=== PATIENT | female | born 1950 | race Caucasian/White ===

== ENCOUNTER 2021-08-21 07:41 | Emergency (ER) | payer MEDICARE, SELFPAY ==
[2021-08-21 07:49] VITALS: BP 168/60; BP 182/82; PULSE 71; RESP 18; O2SAT 96
[2021-08-21 07:51] VITALS: BMI 28.9
--- NOTE | 2021-08-21 07:58 | ED.HA ---
HPI - Headache General Chief Complaint: Headache Stated Complaint: headache, n/v Time Seen by Provider: 08/21/21 07:43 Source: patient and EMS Mode of arrival: EMS Limitations: no limitations History of Present Illness MD elicited complaint: headache and other (elevated BP ran out of metoprolol yesterday AM on 25 metoprolol BID) Pertinent past history: hypertension Onset (ago): day(s) (last night) Onset description: gradually Location: frontal Severity: moderate Quality & Timing: aching Exacerbating factors: none Relieving factors: nothing Context: occurred at rest Associated symptoms: nausea and vomiting Treatments prior to arrival: none Related Data Previous Rx's Medication Instructions Recorded metoprolol tartrate 25 mg tablet 25 mg PO BID #60 tab 08/21/21 Allergies Allergy/AdvReac Type Severity Reaction Status Date / Time NSAIDS (Non-Steroidal Allergy Intermediate STOMACH Unverified 07/03/20 15:43 Anti-Inflamma UPSET [NSAIDS] NSAIDS Allergy Unknown Uncoded 02/29/12 00:00 Review of Systems Review of Systems: Constitutional : No Fever, No Chills, No Fatigue ENT/Mouth : No sore throat, No Rhinorrhea Eyes: No Eye Pain, No Swelling, No Redness Cardiovascular : No Chest Pain, No SOB, No Dyspnea on Exertion Respiratory : No Cough, No Sputum Gastrointestinal : pos Nausea, pos Vomiting, No Diarrhea, No abdominal Pain Genitourinary : No Dysuria, No Urinary Frequency, No Hematuria, Musculoskeletal : No joint pain, No Myalgias, No Joint Swelling Skin : No Skin Lesions, No rash Neuro : No Weakness, No Numbness, No Dizziness, positive Headache Psych : No Anxiety/Panic, No Depression Heme/Lymph: No Bruising, No Bleeding,No Lymphadenopathy Endocrine : No Polyuria, No Polydipsia All other systems reviewed and are negative [facility] Past Medical History Medical History HTN (hypertension) Social History Social History Patient Tobacco Use Status: Current someday Tobacco user Smoked in Last 30 Days: Yes Use of substances other than those prescribed or required for medical reasons: No Advance Directives: No Advance Directives Information Provided: No Physical Exam Vital Signs: Vital Signs: Last Vital Signs Temp 97.7 F 08/21/21 08:05 Pulse 68 08/21/21 08:34 Resp 16 08/21/21 08:34 BP 161/76 H 08/21/21 08:34 Pulse Ox 97 08/21/21 08:34 Body Mass Index 28.9 Appearance: Alert. Oriented X3. No acute distress. Anxious Eyes: Pupils equal, round and reactive to light. ENT: Pharynx normal. Neck: Normal inspection. Neck supple. no meningeal signs CVS: Normal heart rate and rhythm. Pulses normal. Respiratory: No respiratory distress. Breath sounds normal. Abdomen: Soft and non-tender. Skin: Skin warm and dry. Normal skin color. Normal skin turgor. Extremities: No lower extremity edema. No calf ttp Neuro: Oriented X 3. No motor deficit. No sensory deficit. Course Course Course Narrative: patient now refusing to stay states she has someone at home she has to take care of just care of, just needs metoprolol, alert and oriented x 3 i asked the patient again to stay for imaging and workup but she adamantly refuses due to her not being able to care for himself MDM - Headache MDM Narrative Medical decision making narrative: 71 yo female with hx of HTN off of her metoprolol here with n/v and headaches likely due to lack of her BP medications - at this time she only wants her metoprolol she is neurologically intact. She is refusing any form of pain control and is refusing imaging - PO metoprolol ordered Discharge Plan Discharge Clinical Impression: Tension headache HTN (hypertension) Qualifiers: Hypertension type: unspecified Qualified Code(s): I10 - Essential (primary) hypertension Patient Disposition: Left Against Medical Advice Instructions: Acute Headache (ED), Hypertension (ED), Against Medical Advice (ED) Additional Instructions: return to ED for any worsening symptoms or concerns you refused imaging of your brain and you left prior to your blood work being resulted Prescriptions: New metoprolol tartrate 25 mg tablet 25 mg PO BID Qty: 60 RF: 0 Referrals: Wero Booker MD [Primary Care Provider] - 2 days
[2021-08-21] MEDS: Metoprolol Tartrate 25 MG TABLET PO (07:59)
[2021-08-21] MEDS: Ondansetron ODT 4 MG TAB.RAPDIS TRANSLINGU (07:59)
[2021-08-21 08:05] VITALS: BP 149/78; PULSE 73; RESP 15; TEMP 36.5; O2SAT 96
[2021-08-21 08:34] VITALS: BP 161/76; PULSE 68; RESP 16; O2SAT 97
--- NOTE | 2021-08-21 08:37 | PC.NURSE ---
Per lab blood work was never received. Pt informed repeat bloodwork would need to be done. Pt became agitated and refused repeat bloodwork. Pt requested to leave ED. RN informed.
--- NOTE | 2021-08-21 08:59 | PC.NURSE ---
Attempted to discharge the patient and pt began actively vomiting. Pt advised to stay for a CT and further treatment, but she is adamantly refusing to stay. MD is aware who also spoke to the patient about the risk of leaving. Pt is willing to sign out AMA despite the risk.
== END 2021-08-21 09:10 | disposition left against medical advice (07) ==
PROVIDERS: Emergency Provider Emergency Medicine; PCP Internal Medicine
DX: G44.209 Tension-type headache, unspecified, not intractable (principal); I10 Essential (primary) hypertension; F17.200 Nicotine dependence, unspecified, uncomplicated
CPT/HCPCS: 99283; 99284

== ENCOUNTER 2021-11-03 13:12 | Emergency (ER) | payer MEDICARE, SELFPAY ==
[2021-11-03 14:13] VITALS: BP 170/72; PULSE 75; RESP 18; TEMP 37.1; O2SAT 98; BMI 25.1
== END 2021-11-03 18:11 | disposition left against medical advice (07) ==
PROVIDERS: Emergency Provider Emergency Medicine; PCP Internal Medicine
DX: M79.604 Pain in right leg (principal)
CPT/HCPCS: 99281; 99282

== ENCOUNTER 2022-06-10 19:52 | Inpatient (IN) | payer MEDICARE, SELFPAY ==
[2022-06-10] VITALS (8 sets, daily range): BP systolic 169–183; BP diastolic 70–90; PULSE 95–110; RESP 16–20; TEMP 36.6–36.7; O2SAT 98–99; BMI 23.2
--- NOTE | ~2022-06-10 | CT_ITS ---
EXAMINATION: CT HEAD WITHOUT CONTRAST CLINICAL INFORMATION: Altered mental status. COMPARISON: 04/24/2013 TECHNIQUE: Contiguous axial imaging was performed from the skull base to vertex without intravenous contrast. This CT examination was performed using dose optimization techniques as appropriate, variously including the following: * Automated exposure control * Adjustment of mA and/or kV according to patient size (this includes techniques or standardized protocols for targeted exams where dose is matched to indication/reason for exam; i.e. extremities or head) Use of iterative reconstruction technique DLP: 898 mGy-cm. FINDINGS: There is some motion limitation to the study. There is no evidence of acute intracranial hemorrhage or territorial infarction. No abnormal mass effect or midline shift is seen. Napoles to white matter differentiation is well preserved. No extra-axial fluid collections are identified. No hydrocephalus. Proportional prominence of the ventricles and sulcal spaces is consistent with mild volume loss. Patchy periventricular and deep white matter hypoattenuation is consistent with mild small vessel ischemic changes. The osseous structures and soft tissues are normal. The mastoid air cells and visualized portions of the paranasal sinuses are well aerated. CT/CT head/brain wo con IMPRESSION: No acute intracranial pathology. Mild volume loss with small vessel ischemic change.
--- NOTE | 2022-06-10 20:17 | ECG_ITS ---
Test Reason : MEDICAL CLEARANCE Blood Pressure : / mmHG Vent. Rate : 075 BPM Atrial Rate : 075 BPM P-R Int : 120 ms QRS Dur : 080 ms QT Int : 394 ms P-R-T Axes : 076 068 054 degrees QTc Int : 439 ms Sinus rhythm with marked sinus arrhythmia Possible Left atrial enlargement Borderline ECG When compared with ECG of 24-APR-2013 17:48, No significant change was found Referred By: David Guillen Electronically Signed By:ANTIONE SPRINGER
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
--- NOTE | 2022-06-10 21:20 | PHA.MEDREC ---
Pharmacy Consult ? Medication Reconciliation Pharmacy has completed the medication reconciliation. Patient states she is on no medication at home. Because of patients altered mental status I also checked her claim history. Patient has not picked up any medications since december.
--- NOTE | 2022-06-10 21:46 | PC.NURSE ---
Addendum entered by Jaquelin Chase RN 06/10/22 22:21: Provider ordered benadryl and zyprexa PO but pt would not cooperate to take the pills. Pt got up and tried to run out of the emergency room. Situation was deescalated and pt was brought into the BH Pod. Report was given to Zhang DAVILA, who will resume care. Original Note: Pt came in via [place] [facility]EMS. Fire expressed concerns of confusion, delusions, forgetfulness. Her arrived to the hospital and reported pt has been having random screaming fits, racing thoughts, erratic behavior including driving, increased anxiety and paranoia. Jemima WEINSTEIN filed a section 12 for the pt based on the concerns and reports of erratic behavior, dangerous actions, and presenting a harm to herself. When provider went to inform the pt that she will be held here until she can meet with behavioral health, pt stood up, swung at PA and sitter, and started yelling. Situation was deescalated and pt calmed down. Care team is currently speaking with the pt and individually. She will be changed over into hospital attire and brought to the behavioral pod, report has been given to Zhang DAVILA.
[2022-06-10] MEDS: diphenhydrAMINE HCL 50 MG/ML VIAL IM (22:25)
[2022-06-10] MEDS: OLANZapine 10 MG VIAL IM (22:25)
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
[2022-06-10 23:28] LABS: COVID-19 Test Negative (Negative)
[2022-06-11 00:51] LABS: Appearance Urine Clear; Color Urine Yellow; Glucose Urine UA Negative (Negative); Leukocyte Esterase Urine Negative (Negative); Nitrite Urine Negative (Negative); Specific Gravity - Urine <= 1.005 (1.005-1.025); Urine Blood Negative (Negative); Urine Ketones Negative (Negative); Urine Protein Negative (Neg-Trace)
[2022-06-11 01:09] LABS: Amphetamine Screen Urine Not Detected (Not Detect); Barbiturates, Urine Not Detected (Not Detect); Benzodiazepines Screen Urine Not Detected (Not Detect); Cannabinoid Screen Urine Not Detected (Not Detect); Cocaine Screen Urine Not Detected (Not Detect); Fentanyl, urine Not Detected (Not Detect); Opiate Screen Urine Not Detected (Not Detect); Phencyclidine Screen Urine Not Detected (Not Detect)
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
[2022-06-11 07:11] VITALS: BP 151/93; PULSE 87; RESP 18; TEMP 36.6; O2SAT 97
--- NOTE | 2022-06-11 07:22 | PC.NURSE ---
patient appears to remain at rest at present patient approached for CT scan and patient seems to have skewed concept regarding her arrival at hospital. patient states shes here for high blood pressure , i felt dizzy and went for a long drive .
[2022-06-11] MEDS: Midazolam HCl/PF 2 MG/2 ML VIAL IM (07:45)
[2022-06-11 08:00] VITALS: BP 161/80; PULSE 91; RESP 16; O2SAT 98
[2022-06-11 08:15] VITALS: BP 151/93; PULSE 87; RESP 16; O2SAT 97
[2022-06-11 08:30] VITALS: RESP 16
[2022-06-11 08:45] VITALS: BP 169/78; PULSE 82; RESP 16; TEMP 36.6; O2SAT 97
[2022-06-11 10:09] LABS: MANUAL DIFF FLAG NO
[2022-06-11 10:10] LABS: Basophils Percent Auto 0.6 % (0-2); Eosinophils Absolute Auto 0.1 X10*3/uL (0.0-0.4); Eosinophils Percent Auto 1.3 % (0-4); Hematocrit 46.4 % (37.0-47.0); Hemoglobin 15.7 g/dl (12.0-16.0); Imm Gran Abs Auto 0.01 X10*3/uL (0.00-0.03); Imm Gran Pct Auto 0.1 % (0.0-0.4); Lymphocytes Absolute Auto 1.3 X10*3/uL (1.2-4.9); Lymphocytes Percent Auto 18.6 % (20-40); Mean Corpuscular HGB Conc 33.8 g/dl (31.0-35.0); Mean Corpuscular Volume 88.5 fL (80.0-98.0); Mean Platelet Volume 10.1 fL (9.4-12.3); Monocytes Absolute Auto 0.7 X10*3/uL (0.1-1.2); Monocytes Percent Auto 10.3 % (2-11); Neutrophils Absolute Auto 4.9 x10*3/uL (2.0-8.3); Neutrophils Percent Auto 69.1 % (45-73); Platelet Count 188 X10*3/uL (160-400); Red Blood Count 5.24 X10*6/uL (4.20-5.50); White Blood Count 7.1 X10*3/uL (4.8-10.8)
[2022-06-11 10:26] LABS: Alanine Aminotransferase 11 U/L (0-31); Albumin Level 4.2 g/dL (3.5-5.0); Alkaline Phosphatase 93 U/L (39-117); Anion Gap 13 (12-20); Aspartate Amino Transferase 22 U/L (5-31); Blood Urea Nitrogen 11 mg/dL (9-16); Calcium 9.3 mg/dL (8.4-10.2); Carbon Dioxide 28 mmol/L (22-29); Chloride 105 mmol/L (96-108); Creatinine Clr Calc Pharmacy 60.9; Estimated Glomerular Filt Rate > 60; Ethanol < 10 mg/dL; Glucose Random 124 mg/dL (60-115); Magnesium 1.9 mg/dL (1.6-2.6); Potassium 4.1 mmol/L (3.3-5.1); Sodium 142 mmol/L (135-145); Total Protein 6.9 g/dL (6.5-8.0)
[2022-06-11 10:32] LABS: Troponin-I High Sensitivity 9.5 ng/L (<3.5-17.0)
--- NOTE | 2022-06-11 13:25 | PC.NURSE ---
attempted to assist cleint and call left message
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
[2022-06-11 18:00] VITALS: BP 161/83; PULSE 83; RESP 20; TEMP 36.4; O2SAT 97
[2022-06-12 06:00] VITALS: BP 142/77; PULSE 96; RESP 14; TEMP 36.4; O2SAT 97
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
[2022-06-12 18:00] VITALS: BP 165/89; PULSE 98; RESP 20; TEMP 36.6; O2SAT 99
[2022-06-12] MEDS: risperiDONE 0.5 MG TABLET PO (20:32)
[2022-06-13 07:00] VITALS: BP 130/64; PULSE 87; RESP 16; TEMP 36.5; O2SAT 96
--- NOTE | 2022-06-13 10:36 | HO.PSYCHPN ---
Subjective Subjective Date of Service: 06/13/22 Reason For Visit: psychosis / agitation/confusion Subjective Notes: Section 12B Healthcare Proxy: No Guardianship: No Medical Problems Affecting Mental Status: No Interim History: Patient was seen and discussed in rounds today. Records and plans were reviewed. She states that she took the low-dose Risperdal that I started for her yesterday but the nurses think it may be questionable. She states that she did sleep better last night. She is not complaining too much about being here but still is confused about why she is here. No side effects reported. There is behaviors. No changes were made today Medication Compliance: No Review of Systems Review of Systems Yes all other systems are reviewed and are negative Mental Status Exam Mental Status Exam Narrative: In today's visit she is alert, oriented to self, place and the year. Speech is normal. Good eye contact. Affect is appropriate and slightly irritable. Some paranoid ideations and delusions present. Denies any auditory or visual hallucinations. Cognitively he is impaired. Judgment is impaired she denies any SI. Diagnostics Vital Signs (24Hr): Vital Signs - 24 hr 06/12/22 18:00 06/13/22 07:00 Temperature 97.8 F 97.7 F Pulse Rate 98 87 Respiratory Rate 20 16 Blood Pressure 165/89 H 130/64 Pulse Oximetry 99 96 Oxygen Delivery Method Room Air Room Air BMI result Body Mass Index 23.2 Labs Results: 06/11/22 10:03 06/11/22 10:03 Imaging Radiology Impressions: ITS Impressions Head CT 06/11/22 09:01 IMPRESSION: No acute intracranial pathology. Mild volume loss with small vessel ischemic change. Medications Medications Current Medications Acetaminophen (Acetaminophen 325 Mg Tablet) 650 mg PO Q6H PRN PRN Reason: Headache/Pain Mild Scale (1-3) Al Hydroxide/Mg Hydroxide (Magnesium Hydrox/Alum Hydrox 30 Ml Oral.Susp) 30 ml PO Q6H PRN PRN Reason: Heartburn/Nausea Hydroxyzine HCl (Hydroxyzine Hcl 25 Mg Tablet) 25 mg PO Q6H PRN PRN Reason: Anxiety Magnesium Hydroxide (Milk Of Magnesia 30 Ml Oral.Susp) 30 ml PO DAILY PRN PRN Reason: Constipation Pharmacy Consult (Consult Rx Perform Med Rec) 1 each MISCELLANE ONCE PRN PRN Reason: Consult order Risperidone (Risperidone 0.5 Mg Tablet) 0.5 mg PO BEDTIME CLEMENTINA Last Admin: 06/12/22 20:32 Dose: 0.5 mg Trazodone HCl (Trazodone Hcl 50 Mg Tablet) 50 mg PO BEDTIME PRN PRN Reason: Insomnia Allergies Allergies Allergy/AdvReac Type Severity Reaction Status Date / Time NSAIDS (Non-Steroidal Allergy Intermediate STOMACH Unverified 07/03/20 15:43 Anti-Inflamma UPSET [NSAIDS] NSAIDS Allergy Unknown Uncoded 02/29/12 00:00 Assessment & Plan Assessment & Plan (1) Paranoid delusion: Status: Acute Code(s): F22 - Delusional disorders (2) Dementia: Status: Acute Code(s): F03.90 - Unspecified dementia without behavioral disturbance Plan 06/12/2022: Riddhi is admitted for safety and treatment and stabilization. I suggested starting her on a low-dose Risperdal. Side effects reviewed. Her level of comprehension is questionable. Her compliance is questionable also. She will meet with her treatment team on 06/14/22. 06/13: Continue current regimen and plans I spent minutes with the patient and/or on the patient floor today, greater than?50% of which was spent counseling/coordinating care. Reason for contiued inpatient stay Substantial Risk for: harm to self and med/psych decompensation
[2022-06-13 18:00] VITALS: BP 141/85; PULSE 86; RESP 16; TEMP 36.5; O2SAT 98
[2022-06-13] MEDS: risperiDONE 0.5 MG TABLET PO (20:39)
[2022-06-14 06:00] VITALS: BP 142/80; PULSE 88; RESP 16; TEMP 36.7; O2SAT 98
--- NOTE | 2022-06-14 16:50 | HO.PSYCHPN ---
Subjective Subjective Date of Service: 06/14/22 Reason For Visit: psychosis / agitation/confusion Subjective Notes: Hay Warning and Section 12B Healthcare Proxy: No Guardianship: No Medical Problems Affecting Mental Status: No Interim History: I spoke with pt's team, she has been confused, refuses to sign in. Has not yet signed any releases. Unclear benefit on risperdal 0.5 mg, pt has not been formerly diagnosed with dementia, although appears to have cognitive impairment due to memory loss. Also appears paranoid, suspicious. Will need to obtain collateral info from . I evaluated pt, she talks about various losses in her life, although unable to tell me who as she loses track of conversation, becomes derailed. She says prior to hospitalization she has not been sleeping, has lost weight, and attributes this to being too busy in activity/ chores i.e. laundry. Pt is untrusting that T/W is who I say I am, asks to check my badge. Pt is verbalizing negative self thoughts, tells me she looks terrible, unclear sx of depression. When asked if she would be willing to sign a CV, she says she wants to sleep on it. Medication Compliance: Yes Side effects from medications: No Attending Groups: Intermittent Review of Systems Acute medical concerns: No Medical Review of Systems: unchanged Mental Status Exam Mental Status Exam Narrative: Alert but not oriented. Well groomed, good hygiene, petite/ thin body habitus. Intermittent eye contact, inattentive. No Tics or Tremors. No abnormal involuntary movements. Calm, but suspicious, not able to meaningfully engage in conversation. Non-pressured speech, spontaneous with regular rate and rhythm, normal volume and prosody. No prolonged speech latency or dysarthria. Mood is [did not state], affect is constricted. Denies SI/SIB/HI upon inquiry. Denies A/VH. Appears to have paranoid delusional thought content. Thoughts are disorganized, tangential, derailed at times. Appears to have cognitive/ memory impairment. Insight/ Judgment poor. Diagnostics Vital Signs (24Hr): Vital Signs - 24 hr 06/13/22 18:00 Temperature 97.7 F Pulse Rate 86 Respiratory Rate 16 Blood Pressure 141/85 H Pulse Oximetry 98 Oxygen Delivery Method Room Air BMI result Body Mass Index 23.2 Labs Results: 06/11/22 10:03 06/11/22 10:03 Imaging Radiology Impressions: ITS Impressions Head CT 06/11/22 09:01 IMPRESSION: No acute intracranial pathology. Mild volume loss with small vessel ischemic change. Medications Medications Current Medications Acetaminophen (Acetaminophen 325 Mg Tablet) 650 mg PO Q6H PRN PRN Reason: Headache/Pain Mild Scale (1-3) Al Hydroxide/Mg Hydroxide (Magnesium Hydrox/Alum Hydrox 30 Ml Oral.Susp) 30 ml PO Q6H PRN PRN Reason: Heartburn/Nausea Hydroxyzine HCl (Hydroxyzine Hcl 25 Mg Tablet) 25 mg PO Q6H PRN PRN Reason: Anxiety Magnesium Hydroxide (Milk Of Magnesia 30 Ml Oral.Susp) 30 ml PO DAILY PRN PRN Reason: Constipation Pharmacy Consult (Consult Rx Perform Med Rec) 1 each MISCELLANE ONCE PRN PRN Reason: Consult order Risperidone (Risperidone 0.5 Mg Tablet) 0.5 mg PO BEDTIME CLEMENTINA Last Admin: 06/13/22 20:39 Dose: 0.5 mg Trazodone HCl (Trazodone Hcl 50 Mg Tablet) 50 mg PO BEDTIME PRN PRN Reason: Insomnia Allergies Allergies Allergy/AdvReac Type Severity Reaction Status Date / Time NSAIDS (Non-Steroidal Allergy Intermediate STOMACH Unverified 07/03/20 15:43 Anti-Inflamma UPSET [NSAIDS] NSAIDS Allergy Unknown Uncoded 02/29/12 00:00 Assessment & Plan Assessment & Plan (1) Paranoid delusion: Status: Acute Code(s): F22 - Delusional disorders (2) Dementia: Status: Acute Code(s): F03.90 - Unspecified dementia without behavioral disturbance Plan 06/12/2022: Riddhi is admitted for safety and treatment and stabilization. I suggested starting her on a low-dose Risperdal. Side effects reviewed. Her level of comprehension is questionable. Her compliance is questionable also. She will meet with her treatment team on 06/14/22. 06/13: Continue current regimen and plans 06/14: Continue current treatment, pt remains confused, demented, 06/[address] showed Mild volume loss with small vessel ischemic change. OT will follow up with MOCA, ACLS. She remains on section 12b. She does not appear capable of caring for herself independently. Will obtain collateral info from . I spent minutes with the patient and/or on the patient floor today, greater than?50% of which was spent counseling/coordinating care. Patient educated on: diagnosis, medication risk/benefits and therapeutic strategies Reason for contiued inpatient stay Substantial Risk for: inability to function, rapid decompensation and med/psych decompensation
[2022-06-14] MEDS: risperiDONE 0.5 MG TABLET PO (21:18)
[2022-06-14 23:11] VITALS: BP 150/78; PULSE 108; RESP 16; TEMP 36.6; O2SAT 96
[2022-06-15 18:00] VITALS: BP 149/65; PULSE 70; RESP 20; TEMP 36.6; O2SAT 97
[2022-06-15] MEDS: risperiDONE 0.5 MG TABLET PO (20:14)
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
[2022-06-16 07:45] VITALS: BP 145/70; PULSE 75; RESP 16; TEMP 36.6; O2SAT 97
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
[2022-06-16] MEDS: risperiDONE 0.5 MG TABLET PO (21:14)
[2022-06-16 21:50] VITALS: BP 140/80; PULSE 68
[2022-06-17 07:45] VITALS: BP 161/82; PULSE 85; RESP 14; TEMP 36.2; O2SAT 100
[2022-06-17 16:39] VITALS: BMI 23.6
--- NOTE | 2022-06-17 16:49 | HO.PSYCHPN ---
Subjective Subjective Date of Service: 06/17/22 Reason For Visit: psychosis / agitation/confusion Subjective Notes: Hay Warning and Section 7 Healthcare Proxy: No Guardianship: No Medical Problems Affecting Mental Status: No Interim History: I spoke with pt's team. Her declined a family meeting but wants to be kept up to date, unknown court date.?Pt refuses ACL and MOCA. SW is looking into the [facility] program. Per RN, pt still gets very mad, very quick, but she didnt seem paranoid too much today at all. ?She refuses liquid risperdal, insists on only taking 0.5 mg at bedtime. I spoke with pt this evening, she reports she feels exhausted and that I blew my top off today because there are too many people grabbing at me. Complains of feeling cold and says her sleep is poor, feels tired. Feels a little bit fed up. Denies SI/SIB, says she feels safe. Medication Compliance: Intermittent Side effects from medications: No Attending Groups: Intermittent Review of Systems Acute medical concerns: No Medical Review of Systems: unchanged Mental Status Exam Mental Status Exam Narrative: Alert but not oriented. Well groomed, good hygiene, petite/ thin body habitus. Intermittent eye contact, inattentive. No Tics or Tremors. No abnormal involuntary movements. Calm, but suspicious, conversation is difficult, not linear. Non-pressured speech, spontaneous with regular rate and rhythm, normal volume and prosody. No prolonged speech latency or dysarthria. Mood is [refused to state], affect is constricted. Denies SI/SIB/HI upon inquiry. Denies A/VH. Appears to have paranoid delusional thought content. Thoughts are derailed at times. Appears to have cognitive/ memory impairment. Insight/ Judgment poor. Diagnostics Vital Signs (24Hr): Vital Signs - 24 hr 06/16/22 21:50 06/17/22 07:45 Temperature 97.1 F Pulse Rate 68 85 Respiratory Rate 14 Blood Pressure 140/80 H 161/82 H Pulse Oximetry 100 Oxygen Delivery Method Room Air BMI result Body Mass Index 23.6 Labs Results: 06/11/22 10:03 06/11/22 10:03 Imaging Radiology Impressions: ITS Impressions Head CT 06/11/22 09:01 IMPRESSION: No acute intracranial pathology. Mild volume loss with small vessel ischemic change. Medications Medications Current Medications Acetaminophen (Acetaminophen 325 Mg Tablet) 650 mg PO Q6H PRN PRN Reason: Headache/Pain Mild Scale (1-3) Al Hydroxide/Mg Hydroxide (Magnesium Hydrox/Alum Hydrox 30 Ml Oral.Susp) 30 ml PO Q6H PRN PRN Reason: Heartburn/Nausea Hydroxyzine HCl (Hydroxyzine Hcl 25 Mg Tablet) 25 mg PO Q6H PRN PRN Reason: Anxiety Magnesium Hydroxide (Milk Of Magnesia 30 Ml Oral.Susp) 30 ml PO DAILY PRN PRN Reason: Constipation Melatonin (Melatonin 3 Mg Tablet) 3 mg PO BEDTIME PRN PRN Reason: insomnia Pharmacy Consult (Consult Rx Perform Med Rec) 1 each MISCELLANE ONCE PRN PRN Reason: Consult order Risperidone (Risperidone Oral Heidi 1 Mg/Ml Solution) 1 mg PO BEDTIME CLEMENTINA Last Admin: 06/16/22 20:47 Dose: Not Given Risperidone (Risperidone 1 Mg Tablet) 1 mg PO BEDTIME PRN PRN Reason: if refuses liquid Trazodone HCl (Trazodone Hcl 50 Mg Tablet) 50 mg PO BEDTIME PRN PRN Reason: Insomnia Allergies Allergies Allergy/AdvReac Type Severity Reaction Status Date / Time NSAIDS (Non-Steroidal Allergy Intermediate STOMACH Unverified 07/03/20 15:43 Anti-Inflamma UPSET [NSAIDS] NSAIDS Allergy Unknown Uncoded 02/29/12 00:00 Assessment & Plan Assessment & Plan (1) Paranoid delusion: Status: Acute Code(s): F22 - Delusional disorders (2) Dementia: Status: Acute Code(s): F03.90 - Unspecified dementia without behavioral disturbance Plan 06/12/2022: Riddhi is admitted for safety and treatment and stabilization. I suggested starting her on a low-dose Risperdal. Side effects reviewed. Her level of comprehension is questionable. Her compliance is questionable also. She will meet with her treatment team on 06/14/22. 06/13: Continue current regimen and plans 06/14: Continue current treatment, pt remains confused, demented, 06/[address] showed Mild volume loss with small vessel ischemic change. OT will follow up with MOCA, ACLS. She remains on section 12b. She does not appear capable of caring for herself independently. Will obtain collateral info from . 06/15: Pt signed TDN on 06/12/22, expires on 06/16/22, obtained collateral info from , pt is presenting with worsening paranoia, unsafe behaviors, and poor judgment. Will continue work up for dementia. Increase risperdal to 0.5 mg BID for paranoia. 06/16: Pt section VII, refused AM risperdal, will trial 1 mg HS for paranoia, agitation 06/17: Pt declined 1 mg, asked for 0.5 mg which was accommodated, has been med adherent with 0.5 mg. Not much improvement, continues to be agitated and suspicious, non-linear thoughts. I spent minutes with the patient and/or on the patient floor today, greater than?50% of which was spent counseling/coordinating care. Patient educated on: diagnosis, medication risk/benefits and therapeutic strategies Reason for contiued inpatient stay Substantial Risk for: inability to function, rapid decompensation and med/psych decompensation
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
[2022-06-17 18:00] VITALS: BP 167/77; PULSE 73; RESP 18; TEMP 36.8; O2SAT 98
[2022-06-17] MEDS: risperiDONE 1 MG TABLET PO (19:48)
[2022-06-18 08:00] VITALS: BP 145/71; PULSE 100; RESP 14; TEMP 36.3; O2SAT 98
--- NOTE | 2022-06-18 18:16 | P.PNPSI_ITS ---
Subjective Subjective Date of Service: 06/18/22 Reason For Visit: psychosis / agitation/confusion Subjective Notes: Hay Warning Interim History: I spoke with pt this evening and she says she is very tired. She continues to report reluctance to take medication, as she prefers to be unmedicated, I dont want it anytime. However, she says she is willing to take 0.5 mg and prefers to take it in the morning. Sleep has been poor, pt is unable to fall asleep so she decided to dry her clothes. Says she did not like staff knocking on her door, told them to leave me alone. Has anxiety over so many things happening. Acknowledges she needs to rest. Medication Compliance: Yes Side effects from medications: No Attending Groups: Intermittent Review of Systems Acute medical concerns: No Medical Review of Systems: unchanged Mental Status Exam Mental Status Exam Narrative: Alert but not oriented. Well groomed, good hygiene, petite/ thin body habitus. Intermittent eye contact, inattentive. No Tics or Tremors. No abnormal involuntary movements. Calm, but suspicious, conversation is difficult, not linear. Non-pressured speech, spontaneous with regular rate and rhythm, normal volume and prosody. No prolonged speech latency or dysarthria. Mood is tired, affect is constricted. Denies SI/SIB/HI upon inquiry. Denies A/VH. Appears to have paranoid delusional thought content. Thoughts are derailed at times. Appear s to have cognitive/ memory impairment. Insight/ Judgment poor. Diagnostics Vital Signs (24Hr): Vital Signs - 24 hr 06/18/22 08:00 Temperature 97.3 F Pulse Rate 100 Respiratory Rate 14 Blood Pressure 145/71 H Pulse Oximetry 98 Oxygen Delivery Method Room Air BMI result Body Mass Index 23.6 Labs Results: 06/11/22 10:03 06/11/22 10:03 Imaging Radiology Impressions: ITS Impressions Head CT 06/11/22 09:01 IMPRESSION: No acute intracranial pathology. Mild volume loss with small vessel ischemic change. Medications Medications Current Medications Acetaminophen (Acetaminophen 325 Mg Tablet) 650 mg PO Q6H PRN PRN Reason: Headache/Pain Mild Scale (1-3) Al Hydroxide/Mg Hydroxide (Magnesium Hydrox/Alum Hydrox 30 Ml Oral.Susp) 30 ml PO Q6H PRN PRN Reason: Heartburn/Nausea Hydroxyzine HCl (Hydroxyzine Hcl 25 Mg Tablet) 25 mg PO Q6H PRN PRN Reason: Anxiety Magnesium Hydroxide (Milk Of Magnesia 30 Ml Oral.Susp) 30 ml PO DAILY PRN PRN Reason: Constipation Melatonin (Melatonin 3 Mg Tablet) 3 mg PO BEDTIME PRN PRN Reason: insomnia Pharmacy Consult (Consult Rx Perform Med Rec) 1 each MISCELLANE ONCE PRN PRN Reason: Consult order Risperidone (Risperidone 1 Mg Tablet) 1 mg PO BEDTIME CLEMENTINA Last Admin: 06/17/22 19:48 Dose: 0.5 mg Trazodone HCl (Trazodone Hcl 50 Mg Tablet) 50 mg PO BEDTIME PRN PRN Reason: Insomnia Allergies Allergies Allergy/AdvReac Type Severity Reaction Status Date / Time NSAIDS (Non-Steroidal Allergy Intermediate STOMACH Unverified 07/03/20 15:43 Anti-Inflamma UPSET [NSAIDS] NSAIDS Allergy Unknown Uncoded 02/29/12 00:00 Assessment & Plan Assessment & Plan (1) Paranoid delusion: Status: Acute Code(s): F22 - Delusional disorders (2) Dementia: Status: Acute Code(s): F03.90 - Unspecified dementia without behavioral disturbance Plan 06/12/2022: Riddhi is admitted for safety and treatment and stabilization. I suggested starting her on a low-dose Risperdal. Side effects reviewed. Her level of comprehension is questionable. Her compliance is questionable also. She will meet with her treatment team on 06/14/22. 06/13: Continue current regimen and plans 06/14: Continue current treatment, pt remains confused, demented, 06/[address] showed Mild volume loss with small vessel ischemic change. OT will follow up with MOCA, ACLS. She remains on section 12b. She does not appear capable of caring for herself independently. Will obtain collateral info from . 06/15: Pt signed TDN on 06/12/22, expires on 06/16/22, obtained collateral info from , pt is presenting with worsening paranoia, unsafe behaviors, and poor judgment. Will continue work up for dementia. Increase risperdal to 0.5 mg BID for paranoia. 06/16: Pt section VII, refused AM risperdal, will trial 1 mg HS for paranoia, agitation 06/17: Pt declined 1 mg, asked for 0.5 mg which was accommodated, has been med adherent with 0.5 mg. Not much improvement, continues to be agitated and suspicious, non-linear thoughts. 06/18: Continue risperdal at 0.5 mg daily, monitor for benefit I spent minutes with the patient and/or on the patient floor today, greater than?50% of which was spent counseling/coordinating care. Patient educated on: medication risk/benefits and therapeutic strategies Reason for contiued inpatient stay Substantial Risk for: inability to function, rapid decompensation and med/psych decompensation
[2022-06-19 06:00] VITALS: BP 143/72; PULSE 95; RESP 17; TEMP 36.8; O2SAT 97
[2022-06-19] MEDS: risperiDONE 0.5 MG TABLET PO (09:12)
--- NOTE | 2022-06-19 09:16 | P.PNPSI_ITS ---
Subjective Subjective Date of Service: 06/19/22 Reason For Visit: psychosis / agitation/confusion Interim History: I spoke with pt's team, pt has been med adherent but remains suspicious, i rritable. Slept through the night. Pt says she is good but she would be a lot better if never saw this place again. Wants to go home. No noticeable changes on risperdal. Medication Compliance: Yes Side effects from medications: No Attending Groups: No Review of Systems Acute medical concerns: No Medical Review of Systems: unchanged Mental Status Exam Mental Status Exam Narrative: Alert but not oriented. Well groomed, good hygiene, petite/ thin body habitus. Intermittent eye contact, inattentive. No Tics or Tremors. No abnormal involuntary movements. Calm, but suspicious, conversation is difficult, not linear. Non-pressured speech, spontaneous with regular rate and rhythm, normal volume and prosody. No prolonged speech latency or dysarthria. Mood is good, affect is constricted. Denies SI/SIB/HI upon inquiry. Denies A/VH. Appears to have paranoid delusional thought content. Thoughts are derailed. Appears to have cognitive/ memory impairment. Insight/ Judgment poor. Diagnostics Vital Signs (24Hr): BMI result Body Mass Index 23.6 Labs Results: 06/11/22 10:03 06/11/22 10:03 Imaging Radiology Impressions: ITS Impressions Head CT 06/11/22 09:01 IMPRESSION: No acute intracranial pathology. Mild volume loss with small vessel ischemic change. Medications Medications Current Medications Acetaminophen (Acetaminophen 325 Mg Tablet) 650 mg PO Q6H PRN PRN Reason: Headache/Pain Mild Scale (1-3) Al Hydroxide/Mg Hydroxide (Magnesium Hydrox/Alum Hydrox 30 Ml Oral.Susp) 30 ml PO Q6H PRN PRN Reason: Heartburn/Nausea Hydroxyzine HCl (Hydroxyzine Hcl 25 Mg Tablet) 25 mg PO Q6H PRN PRN Reason: Anxiety Magnesium Hydroxide (Milk Of Magnesia 30 Ml Oral.Susp) 30 ml PO DAILY PRN PRN Reason: Constipation Melatonin (Melatonin 3 Mg Tablet) 3 mg PO BEDTIME PRN PRN Reason: insomnia Pharmacy Consult (Consult Rx Perform Med Rec) 1 each MISCELLANE ONCE PRN PRN Reason: Consult order Risperidone (Risperidone 0.5 Mg Tablet) 0.5 mg PO DAILY CLEMENTINA Last Admin: 06/19/22 09:12 Dose: 0.5 mg Trazodone HCl (Trazodone Hcl 50 Mg Tablet) 50 mg PO BEDTIME PRN PRN Reason: Insomnia Allergies Allergies Allergy/AdvReac Type Severity Reaction Status Date / Time NSAIDS (Non-Steroidal Allergy Intermediate STOMACH Unverified 07/03/20 15:43 Anti-Inflamma UPSET [NSAIDS] NSAIDS Allergy Unknown Uncoded 02/29/12 00:00 Assessment & Plan Assessment & Plan (1) Paranoid delusion: Status: Acute Code(s): F22 - Delusional disorders (2) Dementia: Status: Acute Code(s): F03.90 - Unspecified dementia without behavioral disturbance Plan 06/12/2022: Riddhi is admitted for safety and treatment and stabilization. I suggested starting her on a low-dose Risperdal. Side effects reviewed. Her level of comprehension is questionable. Her compliance is questionable also. She will meet with her treatment team on 06/14/22. 06/13: Continue current regimen and plans 06/14: Continue current treatment, pt remains confused, demented, 06/[address] showed Mild volume loss with small vessel ischemic change. OT will follow up with MOCA, ACLS. She remains on section 12b. She does not appear capable of caring for herself independently. Will obtain collateral info from . 06/15: Pt signed TDN on 06/12/22, expires on 06/16/22, obtained collateral info from , pt is presenting with worsening paranoia, unsafe behaviors, and poor judgment. Will continue work up for dementia. Increase risperdal to 0.5 mg BID for paranoia. 06/16: Pt section VII, refused AM risperdal, will trial 1 mg HS for paranoia, agitation 06/17: Pt declined 1 mg, asked for 0.5 mg which was accommodated, has been med adherent with 0.5 mg. Not much improvement, continues to be agitated and alexander spicious, non-linear thoughts. 06/18: Continue risperdal at 0.5 mg daily, monitor for benefit 06/19: Pt is adherent with risperdal and refuses to take more than 0.5 mg I spent minutes with the patient and/or on the patient floor today, greater than?50% of which was spent counseling/coordinating care. Patient educated on: diagnosis, medication risk/benefits and therapeutic strategies Reason for contiued inpatient stay Substantial Risk for: inability to function, rapid decompensation and med/psych decompensation
[2022-06-19 18:00] VITALS: BP 137/64; PULSE 78; RESP 16; TEMP 36.3; O2SAT 98
[2022-06-19] MEDS: Acetaminophen 325 MG TABLET 650 MG PO (22:27)
[2022-06-20 06:00] VITALS: BP 115/55; PULSE 89; RESP 17; TEMP 36.4; O2SAT 97
[2022-06-20] MEDS: risperiDONE 0.5 MG TABLET PO (09:54)
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
[2022-06-20 18:00] VITALS: BP 152/70; PULSE 68; RESP 18; TEMP 36.2; O2SAT 100
[2022-06-21 06:00] VITALS: BP 136/68; PULSE 89; RESP 17; TEMP 36.1; O2SAT 98
[2022-06-21] MEDS: risperiDONE 0.5 MG TABLET PO (08:23)
--- NOTE | 2022-06-21 14:39 | P.PNPSI_ITS ---
Subjective Subjective Date of Service: 06/21/22 Reason For Visit: psychosis / agitation/confusion Subjective Notes: Hay Warning and Section 7 Healthcare Proxy: No Guardianship: No Medical Problems Affecting Mental Status: No Interim History: I spoke with pt's team, she slept well, has been difficult to engage in activity but she is visible in the milieu. Attempted to split her risperdal in half in front of RN but ultimately took it. I spoke with pt, says she feels fine, I do. She is tired. Says she does not want to take more than risperdal 0.5 mg daily because she had a friend who was overweight, she took a lot of pills to try to lose wt and had adverse effects, I don't not like taking too many pills. Appetite is increased, attributes to not smoking rather than med SE. She is calmer, more focused during interview. She is open for referrals for in home services and says she thinks social work job titles may be able to help her , demonstrates good judgment there. Medication Compliance: Yes Side effects from medications: No Attending Groups: No Review of Systems Acute medical concerns: No Medical Review of Systems: unchanged Mental Status Exam Mental Status Exam Narrative: Alert but not oriented. Well groomed, good hygiene, petite/ thin body habitus. Intermittent eye contact, inattentive. No Tics or Tremors. No abnormal in voluntary movements. Calm, but suspicious, conversation is difficult, not linear. Non-pressured speech, spontaneous with regular rate and rhythm, normal volume and prosody. No prolonged speech latency or dysarthria. Mood is fine, affect is constricted. Denies SI/SIB/HI upon inquiry. Denies A/VH. Appears to have paranoid delusional thought content. Thoughts are derailed at times. Appears to have cognitive/ memory impairment. Insight/ Judgment poor. Diagnostics Vital Signs (24Hr): Vital Signs - 24 hr 06/20/22 18:00 06/21/22 06:00 Temperature 97.2 F 97 F Pulse Rate 68 89 Respiratory Rate 18 17 Blood Pressure 152/70 H 136/68 Pulse Oximetry 100 98 Oxygen Delivery Method Room Air Room Air BMI result Body Mass Index 23.6 Labs Results: 06/11/22 10:03 06/11/22 10:03 Imaging Radiology Impressions: ITS Impressions Head CT 06/11/22 09:01 IMPRESSION: No acute intracranial pathology. Mild volume loss with small vessel ischemic change. Medications Medications Current Medications Acetaminophen (Acetaminophen 325 Mg Tablet) 650 mg PO Q6H PRN PRN Reason: Headache/Pain Mild Scale (1-3) Last Admin: 06/19/22 22:27 Dose: 650 mg Al Hydroxide/Mg Hydroxide (Magnesium Hydrox/Alum Hydrox 30 Ml Oral.Susp) 30 ml PO Q6H PRN PRN Reason: Heartburn/Nausea Hydroxyzine HCl (Hydroxyzine Hcl 25 Mg Tablet) 25 mg PO Q6H PRN PRN Reason: Anxiety Magnesium Hydroxide (Milk Of Magnesia 30 Ml Oral.Susp) 30 ml PO DAILY PRN PRN Reason: Constipation Melatonin (Melatonin 3 Mg Tablet) 3 mg PO BEDTIME PRN PRN Reason: insomnia Pharmacy Consult (Consult Rx Perform Med Rec) 1 each MISCELLANE ONCE PRN PRN Reason: Consult order Risperidone (Risperidone 0.5 Mg Tablet) 0.5 mg PO DAILY [facility] Last Admin: 06/21/22 08:23 Dose: 0.5 mg Trazodone HCl (Trazodone Hcl 50 Mg Tablet) 50 mg PO BEDTIME PRN PRN Reason: Insomnia Allergies Allergies Allergy/AdvReac Type Severity Reaction Status Date / Time NSAIDS (Non-Steroidal Allergy Intermediate STOMACH Verified 06/20/22 01:02 Anti-Inflamma UPSET [NSAIDS] Assessment & Plan Assessment & Plan (1) Paranoid delusion: Status: Acute Code(s): F22 - Delusional disorders (2) Dementia: Status: Acute Code(s): F03.90 - Unspecified dementia without behavioral disturbance Plan 06/12/2022: Riddhi is admitted for safety and treatment and stabilization. I suggested starting her on a low-dose Risperdal. Side effects reviewed. Her le christian of comprehension is questionable. Her compliance is questionable also. She will meet with her treatment team on 06/14/22. 06/13: Continue current regimen and plans 06/14: Continue current treatment, pt remains confused, demented, 06/[address] showed Mild volume loss with small vessel ischemic change. OT will follow up with [facility]OC[facility], ACLS. She remains on section 12b. She does not appear capable of caring for herself independently. Will obtain collateral info from . 06/15: Pt signed TDN on 06/12/22, expires on 06/16/22, obtained collateral info from , pt is presenting with worsening paranoia, unsafe behaviors, and poor judgment. Will continue work up for dementia. Increase risperdal to 0.5 mg BID for paranoia. 06/16: Pt section VII, refused AM risperdal, will trial 1 mg HS for paranoia, agitation 06/17: Pt declined 1 mg, asked for 0.5 mg which was accommodated, has been med adherent with 0.5 mg. Not much improvement, continues to be agitated and suspicious, non-linear thoughts. 06/18: Continue risperdal at 0.5 mg daily, monitor for benefit 06/19: Pt is adherent with risperdal and refuses to take more than 0.5 mg 06/20: No changes to above plan, step-son provided collateral info 06/21: continue med regimen, less irritable I spent minutes with the patient and/or on the patient floor today, greater than?50% of which was spent counseling/coordinating care. Patient educated on: diagnosis, medication risk/benefits and therapeutic strategies Reason for contiued inpatient stay Substantial Risk for: inability to function, rapid decompensation and med/psych decompensation
[2022-06-21 19:49] VITALS: BP 121/58; PULSE 81; RESP 17; TEMP 36.7; O2SAT 97
[2022-06-22 08:00] VITALS: BP 124/57; PULSE 90; RESP 16; TEMP 36.4; O2SAT 96
[2022-06-22] MEDS: risperiDONE 0.5 MG TABLET PO (08:10)
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
[2022-06-22 18:00] VITALS: BP 144/69; PULSE 81; RESP 18; TEMP 36.6; O2SAT 98
[2022-06-23 07:30] VITALS: BP 119/71; PULSE 87; RESP 17; TEMP 36.1; O2SAT 94
--- NOTE | 2022-06-23 14:58 | HO.PSYCHPN ---
Subjective Subjective Date of Service: 06/23/22 Reason For Visit: psychosis / agitation/confusion Subjective Notes: Hay Warning, Section 7 and Section 8 Interim History: The nursing staff reported the patient today in the morning refused Risperdal. Today we have a conversation with the high school social studies tutor and explained her legal status. The patient agreed to take Risperdal at bedtime. She remains grossly paranoid and disorganized at times. Mental Status Exam Mental Status Exam Patient Appearance: Well Grooomed Patient Orientation: Person and Situation Level of Consciousness: Awake Patient Behavior: Guarded and Suspicious Mood Description: Suspicious Affect Description: Labile Patient Cognition Impaired: Yes Ability to Follow Directions: Fair Speech Pattern: Clear Hallucinations: None Delusions: Paranoid Ideation Thought Process: Illogical and Distracted Thought Content: positive for [place], positive for Obsessional Thoughts and positive for Poverty of Content Judgement: Fair Diagnostics Vital Signs (24Hr): Vital Signs - 24 hr 06/22/22 18:00 06/23/22 07:30 Temperature 98 F 96.9 F Pulse Rate 81 87 Respiratory Rate 18 17 Blood Pressure 144/69 H 119/71 Pulse Oximetry 98 94 Oxygen Delivery Method Room Air Room Air BMI result Body Mass Index 23.6 Labs Results: 06/11/22 10:03 06/11/22 10:03 Imaging Radiology Impressions: ITS Impressions Head CT 06/11/22 09:01 IMPRESSION: No acute intracranial pathology. Mild volume loss with small vessel ischemic change. Medications Medications Current Medications Acetaminophen (Acetaminophen 325 Mg Tablet) 650 mg PO Q6H PRN PRN Reason: Headache/Pain Mild Scale (1-3) Last Admin: 06/19/22 22:27 Dose: 650 mg Al Hydroxide/Mg Hydroxide (Magnesium Hydrox/Alum Hydrox 30 Ml Oral.Susp) 30 ml PO Q6H PRN PRN Reason: Heartburn/Nausea Hydroxyzine HCl (Hydroxyzine Hcl 25 Mg Tablet) 25 mg PO Q6H PRN PRN Reason: Anxiety Magnesium Hydroxide (Milk Of Magnesia 30 Ml Oral.Susp) 30 ml PO DAILY PRN PRN Reason: Constipation Melatonin (Melatonin 3 Mg Tablet) 3 mg PO BEDTIME PRN PRN Reason: insomnia Multi-Ingred Cream/Lotion/Oil/Oint (Mineral Oil/Petrolatum,White 106 Gm Tube) 1 appl TOPICAL BEDTIME [facility] Last Admin: 06/22/22 20:41 Dose: Not Given Pharmacy Consult (Consult Rx Perform Med Rec) 1 each MISCELLANE ONCE PRN PRN Reason: Consult order Risperidone (Risperidone 0.5 Mg Tablet) 0.5 mg PO DAILY [facility] Last Admin: 06/23/22 07:54 Dose: Not Given Trazodone HCl (Trazodone Hcl 50 Mg Tablet) 50 mg PO BEDTIME PRN PRN Reason: Insomnia Allergies Allergies Allergy/AdvReac Type Severity Reaction Status Date / Time NSAIDS (Non-Steroidal Allergy Intermediate STOMACH Verified 06/20/22 01:02 Anti-Inflamma UPSET [NSAIDS] Assessment & Plan Assessment & Plan (1) Paranoid delusion: Status: Acute Code(s): F22 - Delusional disorders (2) Dementia: Status: Acute Code(s): F03.90 - Unspecified dementia without behavioral disturbance Plan The patient is a 72-year-old female, , with a long history of paranoia, with a sporadic treatment but not compliant with treatment admitted for exacerbation of disorganized behavior. On admission, the patient was offered of Risperdal and she has refused to sign into the unit. Apparently she has a history of veins psychotic and paranoid and she had been untreated. Plan 1. Continue filing for Section 7 and 8. 2. Gather collateral information. 3. Continue Risperdal at bedtime I spent ___20___ minutes with the patient and/or on the patient floor today, greater than?50% of which was spent counseling/coordinating care. Reason for contiued inpatient stay Substantial Risk for: inability to function, rapid decompensation and med/psych decompensation
[2022-06-23] MEDS: risperiDONE 0.5 MG TABLET PO (19:59)
[2022-06-23 20:00] VITALS: BP 159/74; PULSE 16; RESP 83; TEMP 37.1; O2SAT 95
[2022-06-24 06:00] VITALS: BP 113/61; PULSE 87; RESP 17; TEMP 35.9; O2SAT 98
[2022-06-24 07:00] VITALS: BMI 23.9
--- NOTE | 2022-06-24 13:02 | HO.PSYCHPN ---
Subjective Subjective Date of Service: 06/24/22 Reason For Visit: psychosis / agitation/confusion Subjective Notes: Conditional Voluntary Interim History: The nursing staff [facility] the [facility], she remains irritable and angry. The social services director reported the for the building that we had, the patient was very angry yelling and agitated, unable to remember about meeting with the attorney recruiter and the Section 12. The patient has refused to cooperate with the occupational therapist to assess her cognition on the [place] test. On interview she was paranoid but redirectable, no evidence of physical violence. Mental Status Exam Mental Status Exam Patient Appearance: Well Grooomed Patient Orientation: Person and Situation Level of Consciousness: Awake Mood Description: Suspicious and Withdrawn Affect Description: Hostile Patient Cognition Impaired: Yes Ability to Follow Directions: Fair Speech Pattern: Clear Hallucinations: None Delusions: Paranoid Ideation Thought Process: Illogical and Distracted Thought Content: positive for [place] and positive for Poverty of Content Judgement: Fair Diagnostics Vital Signs (24Hr): Vital Signs - 24 hr 06/23/22 20:00 06/24/22 06:00 Temperature 98.7 F 96.6 F L Pulse Rate 16 L 87 Respiratory Rate 83 H 17 Blood Pressure 159/74 H 113/61 Pulse Oximetry 95 98 Oxygen Delivery Method Room Air Room Air BMI result Body Mass Index 23.6 Labs Results: 06/11/22 10:03 06/11/22 10:03 Imaging Radiology Impressions: ITS Impressions Head CT 06/11/22 09:01 IMPRESSION: No acute intracranial pathology. Mild volume loss with small vessel ischemic change. Medications Medications Current Medications Acetaminophen (Acetaminophen 325 Mg Tablet) 650 mg PO Q6H PRN PRN Reason: Headache/Pain Mild Scale (1-3) Last Admin: 06/19/22 22:27 Dose: 650 mg Al Hydroxide/Mg Hydroxide (Magnesium Hydrox/Alum Hydrox 30 Ml Oral.Susp) 30 ml PO Q6H PRN PRN Reason: Heartburn/Nausea Hydroxyzine HCl (Hydroxyzine Hcl 25 Mg Tablet) 25 mg PO Q6H PRN PRN Reason: Anxiety Magnesium Hydroxide (Milk Of Magnesia 30 Ml Oral.Susp) 30 ml PO DAILY PRN PRN Reason: Constipation Melatonin (Melatonin 3 Mg Tablet) 3 mg PO BEDTIME PRN PRN Reason: insomnia Multi-Ingred Cream/Lotion/Oil/Oint (Mineral Oil/Petrolatum,White 106 Gm Tube) 1 appl TOPICAL BEDTIME [facility] Last Admin: 06/23/22 20:00 Dose: Not Given Pharmacy Consult (Consult Rx Perform Med Rec) 1 each MISCELLANE ONCE PRN PRN Reason: Consult order Risperidone (Risperidone 0.5 Mg Tablet) 0.5 mg PO BEDTIME [facility] Last Admin: 06/23/22 19:59 Dose: 0.5 mg Trazodone HCl (Trazodone Hcl 50 Mg Tablet) 50 mg PO BEDTIME PRN PRN Reason: Insomnia Allergies Allergies Allergy/AdvReac Type Severity Reaction Status Date / Time NSAIDS (Non-Steroidal Allergy Intermediate STOMACH Verified 06/20/22 01:02 Anti-Inflamma UPSET [NSAIDS] Assessment & Plan Assessment & Plan (1) Paranoid delusion: Status: Acute Code(s): F22 - Delusional disorders (2) Dementia: Status: Acute Code(s): F03.90 - Unspecified dementia without behavioral disturbance Plan The patient is a 72-year-old female, , with a long history of paranoia, with a sporadic treatment but not compliant with treatment admitted for exacerbation of disorganized behavior. On admission, the patient was offered of Risperdal and she has refused to sign into the unit. Apparently she has a history of veins psychotic and paranoid and she had been untreated. Plan 1. Continue filing for Section 7 and 8. 2. Gather collateral information. 3. Continue Risperdal at bedtime I spent ___20___ minutes with the patient and/or on the patient floor today, greater than?50% of which was spent counseling/coordinating care. Reason for contiued inpatient stay Substantial Risk for: inability to function, rapid decompensation and med/psych decompensation
[2022-06-24 18:00] VITALS: BP 144/67; PULSE 92; RESP 16; TEMP 37.1; O2SAT 98
[2022-06-24] MEDS: risperiDONE 0.5 MG TABLET PO (20:24)
[2022-06-24] MEDS: Mineral Oil/Petrolatum,White 106 GM Tube 1 APPL TOPICAL (20:25)
[2022-06-25 06:00] VITALS: BP 139/67; PULSE 99; RESP 17; TEMP 36.5; O2SAT 97
--- NOTE | 2022-06-25 10:30 | HO.PSYCHPN ---
Subjective Subjective Date of Service: 06/25/22 Reason For Visit: psychosis / agitation/confusion Subjective Notes: Conditional Voluntary Interim History: The nursing staff reported the patient has been more visible in the unit, she is eating well and she has attended to a few groups but she interacts minimally with peers and staff. On interview the patient denies over-sedation with Risperdal 0.5 mg at night. She asked to be discharged today. Mental Status Exam Mental Status Exam Patient Appearance: Well Grooomed Patient Orientation: Person and Situation Level of Consciousness: Awake Patient Behavior: Cooperative Mood Description: Constricted Affect Description: Calm Patient Cognition Impaired: Yes Ability to Follow Directions: Fair Speech Pattern: Clear Hallucinations: None Delusions: Paranoid Ideation Thought Process: Illogical and Distracted Thought Content: positive for Circumstantial Judgement: Fair Diagnostics Vital Signs (24Hr): Vital Signs - 24 hr 06/24/22 18:00 Temperature 98.8 F Pulse Rate 92 Respiratory Rate 16 Blood Pressure 144/67 H Pulse Oximetry 98 Oxygen Delivery Method Room Air BMI result Body Mass Index 23.9 Labs Results: 06/11/22 10:03 06/11/22 10:03 Imaging Radiology Impressions: ITS Impressions Head CT 06/11/22 09:01 IMPRESSION: No acute intracranial pathology. Mild volume loss with small vessel ischemic change. Medications Medications Current Medications Acetaminophen (Acetaminophen 325 Mg Tablet) 650 mg PO Q6H PRN PRN Reason: Headache/Pain Mild Scale (1-3) Last Admin: 06/19/22 22:27 Dose: 650 mg Al Hydroxide/Mg Hydroxide (Magnesium Hydrox/Alum Hydrox 30 Ml Oral.Susp) 30 ml PO Q6H PRN PRN Reason: Heartburn/Nausea Hydroxyzine HCl (Hydroxyzine Hcl 25 Mg Tablet) 25 mg PO Q6H PRN PRN Reason: Anxiety Magnesium Hydroxide (Milk Of Magnesia 30 Ml Oral.Susp) 30 ml PO DAILY PRN PRN Reason: Constipation Melatonin (Melatonin 3 Mg Tablet) 3 mg PO BEDTIME PRN PRN Reason: insomnia Multi-Ingred Cream/Lotion/Oil/Oint (Mineral Oil/Petrolatum,White 106 Gm Tube) 1 appl TOPICAL BEDTIME [facility] Last Admin: 06/24/22 20:25 Dose: 1 appl Pharmacy Consult (Consult Rx Perform Med Rec) 1 each MISCELLANE ONCE PRN PRN Reason: Consult order Risperidone (Risperidone 0.5 Mg Tablet) 0.5 mg PO BEDTIME [facility] Last Admin: 06/24/22 20:24 Dose: 0.5 mg Trazodone HCl (Trazodone Hcl 50 Mg Tablet) 50 mg PO BEDTIME PRN PRN Reason: Insomnia Allergies Allergies Allergy/AdvReac Type Severity Reaction Status Date / Time NSAIDS (Non-Steroidal Allergy Intermediate STOMACH Verified 06/20/22 01:02 Anti-Inflamma UPSET [NSAIDS] Assessment & Plan Assessment & Plan (1) Paranoid delusion: Status: Acute Code(s): F22 - Delusional disorders (2) Dementia: Status: Acute Code(s): F03.90 - Unspecified dementia without behavioral disturbance Plan The patient is a 72-year-old female, , with a long history of paranoia, with a sporadic treatment but not compliant with treatment admitted for exacerbation of disorganized behavior. On admission, the patient was offered of Risperdal and she has refused to sign into the unit. Apparently she has a history of veins psychotic and paranoid and she had been untreated. Plan 1. Continue filing for Section 7 and 8. 2. Gather collateral information. 3. Continue Risperdal at bedtime I spent ___20___ minutes with the patient and/or on the patient floor today, greater than?50% of which was spent counseling/coordinating care. Reason for contiued inpatient stay Substantial Risk for: inability to function, rapid decompensation and med/psych decompensation
[2022-06-25 20:33] VITALS: BP 149/72; PULSE 102; RESP 17; O2SAT 97
[2022-06-25] MEDS: risperiDONE 0.5 MG TABLET PO (20:43)
[2022-06-25 22:45] VITALS: BP 144/67; PULSE 97; RESP 16; O2SAT 96
[2022-06-26] MEDS: Acetaminophen 325 MG TABLET 650 MG PO (04:22)
[2022-06-26 08:00] VITALS: BP 143/66; PULSE 63; RESP 14; TEMP 36.3; O2SAT 99
--- NOTE | 2022-06-26 11:58 | P.PNPSI_ITS ---
Subjective Subjective Date of Service: 06/26/22 Reason For Visit: psychosis / agitation/confusion Subjective Notes: Section 7 Interim History: The patient was quite forthcoming able to discuss issues prior to admission with becoming physically disabled and pressure of moving from 1 house to another and trying to manage multiple stressors and feeling overwhelmed. Was able to describe for a few days prior to admission difficulty sleeping. Medication Compliance: Yes Mental Status Exam Mental Status Exam Patient Appearance: Well Grooomed Patient Orientation: Person and Situation Level of Consciousness: Awake Patient Behavior: Appropriate and Cooperative Mood Description: Constricted Affect Description: Apprehensive Patient Cognition Impaired: Yes Ability to Follow Directions: Fair Speech Pattern: Clear Hallucinations: None Delusions: Paranoid Ideation Thought Process: Racing and Distracted Thought Content: positive for Circumstantial Judgement: Fair Judgement and Insight: Somewhat more logical and reflective no insight regarding psychiatric illness she is willing to consider that she has stress related condition Diagnostics Vital Signs (24Hr): Vital Signs - 24 hr 06/25/22 20:33 06/25/22 22:45 Pulse Rate 102 H 97 Respiratory Rate 17 16 Blood Pressure 149/72 H 144/67 H Pulse Oximetry 97 96 Oxygen Delivery Method Room Air Room Air BMI result Body Mass Index 23.9 Labs Results: 06/11/22 10:03 06/11/22 10:03 Imaging Radiology Impressions: ITS Impressions Head CT 06/11/22 09:01 IMPRESSION: No acute intracranial pathology. Mild volume loss with small vessel ischemic change. Medications Medications Current Medications Acetaminophen (Acetaminophen 325 Mg Tablet) 650 mg PO Q6H PRN PRN Reason: Headache/Pain Mild Scale (1-3) Last Admin: 06/26/22 04:22 Dose: 325 mg Al Hydroxide/Mg Hydroxide (Magnesium Hydrox/Alum Hydrox 30 Ml Oral.Susp) 30 ml PO Q6H PRN PRN Reason: Heartburn/Nausea Hydroxyzine HCl (Hydroxyzine Hcl 25 Mg Tablet) 25 mg PO Q6H PRN PRN Reason: Anxiety Magnesium Hydroxide (Milk Of Magnesia 30 Ml Oral.Susp) 30 ml PO DAILY PRN PRN Reason: Constipation Melatonin (Melatonin 3 Mg Tablet) 3 mg PO BEDTIME PRN PRN Reason: insomnia Multi-Ingred Cream/Lotion/Oil/Oint (Mineral Oil/Petrolatum,White 106 Gm Tube) 1 appl TOPICAL BEDTIME [facility] Last Admin: 06/25/22 20:45 Dose: Not Given Pharmacy Consult (Consult Rx Perform Med Rec) 1 each MISCELLANE ONCE PRN PRN Reason: Consult order Risperidone (Risperidone 0.5 Mg Tablet) 0.5 mg PO BEDTIME [facility] Last Admin: 06/25/22 20:43 Dose: 0.5 mg Trazodone HCl (Trazodone Hcl 50 Mg Tablet) 50 mg PO BEDTIME PRN PRN Reason: Insomnia Allergies Allergies Allergy/AdvReac Type Severity Reaction Status Date / Time NSAIDS (Non-Steroidal Allergy Intermediate STOMACH Verified 06/20/22 01:02 Anti-Inflamma UPSET [NSAIDS] Assessment & Plan Assessment & Plan (1) Paranoid delusion: Status: Acute Code(s): F22 - Delusional disorders (2) Dementia: Status: Acute Code(s): F03.90 - Unspecified dementia without behavioral disturbance Plan The patient is a 72-year-old female, , with a long history of paranoia, with a sporadic treatment but not compliant with treatment admitted for exacerbation of disorganized behavior. On admission, the patient was offere d of Risperdal and she has refused to sign into the unit. Apparently she has a history of veins psychotic and paranoid and she had been untreated. Plan 1. Continue filing for Section 7 and 8. 2. Gather collateral information. 3. Continue Risperdal at bedtime 06/26/2022 Encourage treatment with Risperdal. Questionable history of manic psychotic episode 10 years ago encourage treatment acceptance somewhat more forthcoming and engaged Pending Section 8 hearing scheduled I spent minutes with the patient and/or on the patient floor today, greater than?50% of which was spent counseling/coordinating care. Reason for contiued inpatient stay Substantial Risk for: inability to function and rapid decompensation
[2022-06-26 18:00] VITALS: BP 143/69; PULSE 88; RESP 18; TEMP 36.8; O2SAT 99
[2022-06-26] MEDS: risperiDONE 0.5 MG TABLET PO (20:08)
[2022-06-27 08:00] VITALS: BP 127/63; PULSE 97; RESP 18; TEMP 36.8; O2SAT 98
--- NOTE | 2022-06-27 16:05 | HO.PSYCHPN ---
Subjective Subjective Date of Service: 06/27/22 Reason For Visit: psychosis / agitation/confusion Subjective Notes: Section 7 Interim History: The patient is somewhat isolated but does engage with this ad copy writer for extended periods relates long history with her and issues that have come up over the years including having a period of depression when her mother many years ago. Patient did is able to relate multiples stressors in her life financial issues did discuss possibility of bipolar disorder she stated that her [id number] had bipolar disorder and that she had experienced this with her. Patient is having difficulty with executive functioning and processing Mental Status Exam Mental Status Exam Patient Appearance: Well Grooomed Patient Orientation: Person and Situation Level of Consciousness: Awake Patient Behavior: Appropriate, Cooperative and Good Eye Contact Mood Description: Constricted Affect Description: Angry and Apprehensive Patient Cognition Impaired: Yes Ability to Follow Directions: Fair Speech Pattern: Clear Hallucinations: None Delusions: Paranoid Ideation Thought Process: Racing and Distracted Thought Content: positive for Circumstantial Judgement: Fair Judgement and Insight: Somewhat more logical and reflective no insight regarding psychiatric illness she is willing to consider that she has stress related condition Diagnostics Vital Signs (24Hr): Vital Signs - 24 hr 06/26/22 18:00 06/27/22 08:00 Temperature 98.3 F 98.2 F Pulse Rate 88 97 Respiratory Rate 18 18 Blood Pressure 143/69 H 127/63 Pulse Oximetry 99 98 Oxygen Delivery Method Room Air Room Air BMI result Body Mass Index 23.9 Labs Results: 06/11/22 10:03 06/11/22 10:03 Imaging Radiology Impressions: ITS Impressions Head CT 06/11/22 09:01 IMPRESSION: No acute intracranial pathology. Mild volume loss with small vessel ischemic change. Medications Medications Current Medications Acetaminophen (Acetaminophen 325 Mg Tablet) 650 mg PO Q6H PRN PRN Reason: Headache/Pain Mild Scale (1-3) Last Admin: 06/26/22 04:22 Dose: 325 mg Al Hydroxide/Mg Hydroxide (Magnesium Hydrox/Alum Hydrox 30 Ml Oral.Susp) 30 ml PO Q6H PRN PRN Reason: Heartburn/Nausea Hydroxyzine HCl (Hydroxyzine Hcl 25 Mg Tablet) 25 mg PO Q6H PRN PRN Reason: Anxiety Magnesium Hydroxide (Milk Of Magnesia 30 Ml Oral.Susp) 30 ml PO DAILY PRN PRN Reason: Constipation Melatonin (Melatonin 3 Mg Tablet) 3 mg PO BEDTIME PRN PRN Reason: insomnia Multi-Ingred Cream/Lotion/Oil/Oint (Mineral Oil/Petrolatum,White 106 Gm Tube) 1 appl TOPICAL BEDTIME [facility] Last Admin: 06/26/22 20:10 Dose: Not Given Pharmacy Consult (Consult Rx Perform Med Rec) 1 each MISCELLANE ONCE PRN PRN Reason: Consult order Risperidone (Risperidone 0.5 Mg Tablet) 0.5 mg PO BEDTIME [facility] Last Admin: 06/26/22 20:08 Dose: 0.5 mg Trazodone HCl (Trazodone Hcl 50 Mg Tablet) 50 mg PO BEDTIME PRN PRN Reason: Insomnia Allergies Allergies Allergy/AdvReac Type Severity Reaction Status Date / Time NSAIDS (Non-Steroidal Allergy Intermediate STOMACH Verified 06/20/22 01:02 Anti-Inflamma UPSET [NSAIDS] Assessment & Plan Assessment & Plan (1) Paranoid delusion: Status: Acute Code(s): F22 - Delusional disorders (2) Dementia: Status: Acute Code(s): F03.90 - Unspecified dementia without behavioral disturbance Plan The patient is a 72-year-old female, , with a long history of paranoia, with a sporadic treatment but not compliant with treatment admitted for exacerbation of disorganized behavior. On admission, the patient was offered of Risperdal and she has refused to sign into the unit. Apparently she has a history of veins psychotic and paranoid and she had been untreated. Plan 1. Continue filing for Section 7 and 8. 2. Gather collateral information. 3. Continue Risperdal at bedtime 06/26/2022 Encourage treatment with Risperdal. Questionable history of manic psychotic episode 10 years ago encourage treatment acceptance somewhat more forthcoming and engaged Pending Section 8 hearing scheduled 06/27/2022 Continue plan of care encourage patient acceptance of treatment and help I spent minutes with the patient and/or on the patient floor today, greater than?50% of which was spent counseling/coordinating care. Reason for contiued inpatient stay Substantial Risk for: inability to function, rapid decompensation and med/psych decompensation
[2022-06-27 20:00] VITALS: BP 163/77; PULSE 85; TEMP 36.6; O2SAT 97
[2022-06-27] MEDS: risperiDONE 0.5 MG TABLET PO (20:07)
[2022-06-28 06:00] VITALS: BP 138/70; PULSE 65; RESP 18; TEMP 35.9; O2SAT 98
[2022-06-28] MEDS: Acetaminophen 325 MG TABLET 650 MG PO (06:02)
--- NOTE | 2022-06-28 16:15 | P.PNPSI_ITS ---
Subjective Subjective Date of Service: 06/28/22 Reason For Visit: psychosis / agitation/confusion Subjective Notes: Conditional Voluntary Interim History: The nursing staff reported the patient has been sarcastic and superficial but chronically paranoid. Today we talked with the drug abuse social worker with his brother Feroz who reported a chronic history of paranoia since her early 20s would probably a prior admission at [facility]. Even the she has been chronically psychotic and paranoid she has never been violent or unsafe. His brother refused to be the healthcare proxy and stated that her should be the 1 signing the document. Today her called and stated that he is doing fine and he is safe in the house with her and he advocated not today her driving license of her because he drives him around. Occupational therapist assessed her and it seems that her cognition is mildly impaired. At this moment, we do not have a strong case for commitment, even though that we have the suspicious that she is chronically impaired there is no clear evidence of unsafe behaviors Mental Status Exam Mental Status Exam Patient Appearance: Well Grooomed Patient Orientation: Person and Situation Level of Consciousness: Awake Patient Behavior: Cooperative Mood Description: Withdrawn Affect Description: Constricted Patient Cognition Impaired: Yes Ability to Follow Directions: Good Speech Pattern: Clear Hallucinations: None Delusions: Not Present Thought Process: Distracted Thought Content: positive for [place] and positive for Poverty of Content Judgement: Fair Diagnostics Vital Signs (24Hr): Vital Signs - 24 hr 06/27/22 20:00 06/28/22 06:00 Temperature 97.8 F 96.7 F L Pulse Rate 85 65 Respiratory Rate 18 Blood Pressure 163/77 H 138/70 Pulse Oximetry 97 98 Oxygen Delivery Method Room Air Room Air BMI result Body Mass Index 23.9 Labs Results: 06/11/22 10:03 06/11/22 10:03 Imaging Radiology Impressions: ITS Impressions Head CT 06/11/22 09:01 IMPRESSION: No acute intracranial pathology. Mild volume loss with small vessel ischemic change. Medications Medications Current Medications Acetaminophen (Acetaminophen 325 Mg Tablet) 650 mg PO Q6H PRN PRN Reason: Headache/Pain Mild Scale (1-3) Last Admin: 06/28/22 06:02 Dose: 325 mg Al Hydroxide/Mg Hydroxide (Magnesium Hydrox/Alum Hydrox 30 Ml Oral.Susp) 30 ml PO Q6H PRN PRN Reason: Heartburn/Nausea Hydroxyzine HCl (Hydroxyzine Hcl 25 Mg Tablet) 25 mg PO Q6H PRN PRN Reason: Anxiety Magnesium Hydroxide (Milk Of Magnesia 30 Ml Oral.Susp) 30 ml PO DAILY PRN PRN Reason: Constipation Melatonin (Melatonin 3 Mg Tablet) 3 mg PO BEDTIME PRN PRN Reason: insomnia Multi-Ingred Cream/Lotion/Oil/Oint (Mineral Oil/Petrolatum,White 106 Gm Tube) 1 appl TOPICAL BEDTIME [facility] Last Admin: 06/27/22 20:08 Dose: Not Given Pharmacy Consult (Consult Rx Perform Med Rec) 1 each MISCELLANE ONCE PRN PRN Reason: Consult order Risperidone (Risperidone 0.5 Mg Tablet) 0.5 mg PO BEDTIME [facility] Last Admin: 06/27/22 20:07 Dose: 0.5 mg Trazodone HCl (Trazodone Hcl 50 Mg Tablet) 50 mg PO BEDTIME PRN PRN Reason: Insomnia Allergies Allergies Allergy/AdvReac Type Severity Reaction Status Date / Time NSAIDS (Non-Steroidal Allergy Intermediate STOMACH Verified 06/20/22 01:02 Anti-Inflamma UPSET [NSAIDS] Assessment & Plan Assessment & Plan (1) Paranoid delusion: Status: Acute Code(s): F22 - Delusional disorders (2) Dementia: Status: Acute Code(s): F03.90 - Unspecified dementia without behavioral disturbance Plan The patient is a 72-year-old female, , with a long history of paranoia, with a sporadic treatment but not compliant with treatment admitted for exacerbation of disorganized behavior. On admission, the patient was offere d of Risperdal and she has refused to sign into the unit. Apparently she has a history of veins psychotic and paranoid and she had been untreated. Plan 1. Continue filing for Section 7 and 8. 2. Gather collateral information. 3. Continue Risperdal at bedtime 06/26/2022 Encourage treatment with Risperdal. Questionable history of manic psychotic episode 10 years ago encourage treatment acceptance somewhat more forthcoming and engaged Pending Section 8 hearing scheduled Discharge tomorrow I spent ___20___ minutes with the patient and/or on the patient floor today, greater than?50% of which was spent counseling/coordinating care. Reason for contiued inpatient stay Substantial Risk for: inability to function, rapid decompensation and med/psych decompensation
[2022-06-28 18:00] VITALS: BP 155/70; PULSE 67; RESP 16; TEMP 36.6; O2SAT 98
[2022-06-28] MEDS: risperiDONE 0.5 MG TABLET PO (20:37)
[2022-06-29 07:45] VITALS: BP 127/60; PULSE 74; RESP 18; TEMP 36.2; O2SAT 99
--- NOTE | 2022-06-29 10:55 | P.DS_ITS ---
DS: Providers Provider Date of Service: 06/29/22 Date of admission: 06/11/22 14:04 Date of discharge: 06/29/22 Primary care physician: Unknown Physician DS: Diagnosis Discharge Diagnosis (1) Paranoid delusion: Status: Acute (2) Dementia: Status: Acute DS: Medications Discharge Medications Home Medications: Home Medications Medication Instructions Recorded Confirmed No Known Home Meds 06/11/22 06/11/22 Mental Status Exam Mental Status Exam Patient Appearance: Well Grooomed Patient Orientation: Person, Place, Time and Situation Level of Consciousness: Awake Patient Behavior: Guarded Mood Description: Suspicious Affect Description: Calm Ability to Follow Directions: Good Speech Pattern: Clear Hallucinations: None Delusions: Paranoid Ideation Thought Process: Linear Thought Content: positive for [place] and positive for Poverty of Content Judgement: Fair Data Imaging Diagnostic Imaging Impressions Head CT 06/11/22 09:01 IMPRESSION: No acute intracranial pathology. Mild volume loss with small vessel ischemic change. DS: Summary Hospital Course Hospital Course: The patient was admitted to this facility after she was assessed by crisis due to psychotic symptoms. Please see the HPI note for further details. On admission, the patient was started on Risperdal and she was reluctant to take any medications. Since she was admitted, the patient refused to sign conditional voluntary, refused consent to release information and she stated that she was fine. She adamantly denies suicidal ideation, homicidal ideation and refused to work with our staff on cognitive assessments and functional assessments. Since we did not have collateral information and only the crisis assessment and the patient was uncooperative we had to filed for Section 7 and 8. While we waiting for the court hearing, she allowed us to contact some family members. Apparently, according to her brother, the patient has been chronically psychotic and paranoid since her early 20s and probably she had a previous admission at [facility] but she never followed treatment as an outpatient. We could contact her and he refused to collaborate and provide information to court regarding her chronic paranoia. Later on, the social media marketer could contact her step children and they reported that she had been paranoid and they had interpersonal conflicts due to her paranoia, even though, she has never been assaultive physically towards family or her impaired .. The patient agreed to take a low dose of Risperdal at night, she was able to participate in a few groups and she was able to perform all her ADL less without help. She adamantly denies suicidal or homicidal thoughts she was able to contract for safety. She refused outpatient services and refused to sign a consent to release information to contact her primary care or arrange outpatient care. It was abuse that the patient has chronic paranoia and probably cognitive impairment since she forgets that we had conversations with her but there is no clear evidence of imminent danger to self or others. The social media marketer, contact adult protective Services and report the case. We also inform the DM[employer] so they can assess if she can drive. Since there were no safety concerns discharge planning was discussed. Time spent discussing smoking cessation with patient: 3 to 10 minutes Status at Discharge Cognitive/behavioral status at discharge: Unable to fully assess due to uncooperative nests of the patient Functional status at discharge: independent ambulation Overall status at discharge: patient is back to baseline Time Spent with Patient Time attestation: Total time spent providing and/or coordinating discharge services: Time spent: Less than 30 minutes Discharge Plan Discharge Patient Disposition: Home, Self-Care Discharge Diagnosis: Chronic paranoia Referrals: [facility] [Other] - 1 Week (Please call [phone] in 3-5 days to check on referral made on your behalf and to scheduled evaluation if you are not contacted in 3-5 post discharge.) [facility] [Other] - 1 Week (Please call in 3-5 days post discharge if you are not contacted in three days after discharge.) [facility] [Other] - 1 Week Physician,Eduard J [Primary Care Provider] - 1 Week (Pt will schedule own appointment with pcp. Declined to provide name of current pcp, and states she is in process of possibly choosing another. ) Discharge Medications: New melatonin 3 mg Tablet 3 mg PO BEDTIME PRN (Reason: insomnia) 30 Days Qty: 30 0RF Dermacerin Cream 1 appl topical BEDTIME Qty: 454 0RF risperidone 0.5 mg Tablet 0.5 mg PO BEDTIME 30 Days Qty: 30 0RF Discharge Orders: Discharge Order (Routine); Ordered 06/29/22 Ordered By: Oswaldo Newman Diet: Advance to usual diet Activity on Discharge: As tolerated Stand Alone Forms: Patient Portal Discharge page Care Plan Goals: The patient refused to participate on care plan Health Concerns: We encouraged the patient to engage with the primary care physician Plan of Treatment: Continue outpatient services Assessment: The patient is a chronic paranoid individual admitted for exacerbation of psychosis, was started on Risperdal with some residual paranoia but no evidence of disturbance of behavior or safety concerns. The patient refused to engage in treatment
== END 2022-06-29 13:06 | disposition home or self-care (01) | DRG 885 ==
LOC: HO.ED 06-11 13:30 → HO.PGERI 06-11 14:16
PROVIDERS: Physician Assistant; Admitting Provider Psychiatry & Neurology Psychiatry; Emergency Provider Emergency Medicine; Visit Provider Psychiatry & Neurology Psychiatry
DX: F22 Delusional disorders (principal); F03.90 Unspecified dementia, unspecified severity, without behavioral disturbance, psychotic disturbance, mood disturbance, and anxiety; F17.210 Nicotine dependence, cigarettes, uncomplicated; Z71.6 Tobacco abuse counseling; Z20.822 Contact with and (suspected) exposure to COVID-19; Z88.6 Allergy status to analgesic agent; Z79.899 Other long term (current) drug therapy
CPT/HCPCS: 70450; 80053; 80307; 81003; 82077; 83735; 84484; 85025; 87635; 93005; 96372; 99285; J1200; J2250

== ENCOUNTER 2022-07-06 18:10 | Outpatient (REF) | payer MEDICARE, SELFPAY ==
[2022-07-06 19:00] LABS: Influenza A PCR NEGATIVE (Negative); Influenza B PCR NEGATIVE (Negative); Resp Syncy Virus RNA Qual PCR NEGATIVE (Negative); SARS COV2 PCR INHOUSE NEGATIVE (Negative)
== END 2022-07-06 18:11 | disposition home or self-care (01) ==
LOC: HO.LNP 18:10
PROVIDERS: Visit Provider Internal Medicine
DX: Z20.822 Contact with and (suspected) exposure to COVID-19 (principal); R43.9 Unspecified disturbances of smell and taste
CPT/HCPCS: 0241U

== ENCOUNTER 2023-04-19 22:13 | Emergency (ER) | payer MEDICARE, SELFPAY ==
--- NOTE | 2023-04-19 22:21 | ED.FALL ---
HPI - Fall General Chief Complaint: Fall Stated Complaint: Fall Time Seen by Provider: 04/19/23 22:19 Source: patient and EMS Mode of arrival: EMS Limitations: no limitations History of Present Illness HPI Narrative: Patient comes to the emergency room complaining of a fall. Patient states she was out on the street, patient missed a step and fell backwards. Patient complaining of a laceration to the scalp posteriorly. Patient did not lose consciousness. When EMS arrived, they wanted to put the patient on C-spine precautions. But patient declined. Patient is not on blood thinners. Other than localized pain, patient denies headache, no neck pain, no other injuries. Related Data Previous Rx's Medication Instructions Recorded melatonin 3 mg tablet 3 mg PO BEDTIME PRN insomnia 30 06/29/22 days #30 tabs risperidone 0.5 mg tablet 0.5 mg PO BEDTIME 30 days #30 tabs 06/29/22 white petrolatum-mineral oil 1 appl topical BEDTIME #454 grams 06/29/22 topical cream (Dermacerin topical cream) azithromycin 250 mg tablet See Rx Instructions PO .COMPLEX #6 07/06/22 tabs amlodipine 5 mg tablet 5 mg PO DAILY #30 tabs 04/19/23 Allergies Allergy/AdvReac Type Severity Reaction Status Date / Time NSAIDS (Non-Steroidal Allergy Intermediate STOMACH Verified 07/06/22 17:19 Anti-Inflamma UPSET [NSAIDS] Review of Systems Review of Systems: Constitutional : No Weight loss, No Fever, No Chills, No Night Sweats, No Fatigue, No Malaise ENT/Mouth : No Hearing loss, No Ear Pain, No Nasal Congestion, No Sinus Pain, No Hoarseness, No sore throat, No Rhinorrhea, No Swallowing Difficulty Eyes: No Eye Pain, No Swelling, No Redness, No Foreign Body, No Discharge, No Vision Changes Cardiovascular : No Chest Pain, No SOB, No Dyspnea on Exertion, No Orthopnea, No Edema, No Palpitations Respiratory : No Cough, No Sputum, No Wheezing, No Smoke Exposure, No Dyspnea Gastrointestinal : No Nausea, No Vomiting, No Diarrhea, No Constipation, No abdominal Pain, No Hematochezia, No Melena Genitourinary : no irregular bleeding, No Dysuria, No Urinary Frequency, No Hematuria, No Urinary Incontinence, No Urgency, No Flank Pain, No Urinary Flow Changes, No Hesitancy Musculoskeletal : No joint pain, No Myalgias, No Joint Swelling Skin : Complaining of a laceration to the scalp, otherwise No Skin Lesions, No rash Neuro : No Weakness, No Numbness, No Paresthesias, No Loss of Consciousness, No Dizziness, No Headache Psych : No Anxiety/Panic, No Depression, No SI/HI/AH/VH, No Social Issues, Heme/Lymph: No Bruising, No Bleeding,No Lymphadenopathy Endocrine : No Polyuria, No Polydipsia, No Temperature Intolerance [facility] Past Medical History Medical History Aggression Altered mental status Auditory hallucination Dementia HTN (hypertension) Social History Social History Household Members: Spouse Housing: House Do you presently have visiting nurse or other home services: No Unable to assess alcohol history related to: Refusing to respond Alcohol intake: never Patient Tobacco Use Status: Current everyday Tobacco user Tobacco use type: Cigarette Cigarette Packs Per Day: 1 Cigarettes Per Day: 20.0 e-Cigarette/Vaping Use: Never Used Second Hand Smoke Exposure: No Advance Directives: No Advance Directives Information Provided: No service: No Sexual orientation: Straight/Heterosexual Physical Exam Vital Signs: Vital Signs: Last Vital Signs Temp 97.7 F 04/19/23 22:22 Pulse 94 04/19/23 22:22 Resp 16 04/19/23 22:22 BP 185/83 H 04/19/23 23:04 Pulse Ox 100 04/19/23 22:22 O2 Del Method Room Air 04/19/23 22:22 BMI result Body Mass Index 24.4 Const: Other: Appearance: Alert. Oriented X3. No acute distress. Eyes: Pupils equal, round and reactive to light. ENT: Pharynx normal. Neck: Normal inspection. Neck supple. No lymph nodes noted. No crepitus CVS: Normal heart rate and rhythm. Pulses normal. Normal S1 and S2 Respiratory: No respiratory distress. Breath sounds normal. No Wheezing. No rales Abdomen: Soft and nontender. No rigidity. No distention. Skin: Skin warm and dry. Normal skin color. Normal skin turgor. Extremities: No lower extremity edema. No Lacerations. No Rash Neuro: Oriented X 3. No motor deficit. No sensory deficit. Moving all extremities. No slurred speech. CN 2 through 12 grossly intact Psych: calm, cooperative, normal affect Course Course Course Narrative: -patient will need stitches/gabriel -CT scan of the head and neck pending Medications Administered Discontinued Medications Generic Name Dose Route Start Last Admin Trade Name Nneka PRN Reason Stop Dose Admin Acetaminophen 325 mg 04/19/23 23:05 04/19/23 23:15 Acetaminophen 325 Mg Tablet PO 04/19/23 23:06 325 mg ONCE ONE Administration Amlodipine Besylate 5 mg 04/19/23 23:07 04/19/23 23:17 Amlodipine Besylate 5 Mg Tablet PO 04/19/23 23:08 5 mg ONCE ONE Administration Protocol Lidocaine HCl 2 ml 04/19/23 22:51 04/19/23 22:55 Lidocaine Hcl 2% 2 Ml Vial INFILTRATI 04/19/23 22:52 2 ml ONCE ONE Administration Procedures Laceration Laceration 1: Site: scalp Size (cm): 0.5 Description: linear Depth: simple, single layer Local Anesthetic: lidocaine 2% Amount of anesthesia used (mL): 1 Skin layer closed with: other (Staple) Number of sutures: 2 Medical Decision Making Medical Decision Making MDM Narrative: -patient states that she is concerned that she will get a big bill for head and cervical spine CTs. Patient states that she feels well, no headache, no neck pain. Although patient has history of dementia, seems to be relatively mild, Patient is alert and oriented x3. Having coherent conversations with us. Patient refused the CT scans. -patient aware that we cannot rule out brain bleed or neck fracture without the scans. Patient still refusing. -patient has a 0.5 cm laceration to the scalp, actively bleeding. Skin was infiltrated with 2% lidocaine, 2 gabriel were applied. Bleeding controlled. -initial blood pressure 199/96. Patient states that she is aware that she has history of hypertension. Patient states that ?many? years ago she stopped taking her blood medications, she is take metoprolol. -today, patient is agreeable to take 5 mg of amlodipine. Patient is agreeable to continue taking amlodipine daily, she will follow up with the primary care physician. Differential Diagnosis Differential Diagnoses: The differential diagnosis associated with the presentation includes (Hematoma, intracranial bleed, cervical fracture) Tests considered The following testing was considered but not selected: CT scan of the head and cervical spine considered. Patient refused Discharge Plan Discharge Clinical Impression: Fall, Laceration of scalp, Hypertension Patient Disposition: Home, Self-Care Instructions: Laceration (ED), Chronic Hypertension (ED), Staple Care (ED) Additional Instructions: Your gabriel need to be removed in 7-10 days. Please follow-up with your primary care physician tomorrow. If you have any worsening or new symptoms, please return to the emergency room or call 911 Prescriptions: New amlodipine 5 mg tablet 5 mg PO DAILY Qty: 30 0RF No Action melatonin 3 mg Tablet 3 mg PO BEDTIME PRN (Reason: insomnia) 30 Days Qty: 30 0RF Dermacerin Cream 1 appl topical BEDTIME Qty: 454 0RF risperidone 0.5 mg Tablet 0.5 mg PO BEDTIME 30 Days Qty: 30 0RF azithromycin 250 mg tablet See Rx Instructions PO .COMPLEX Qty: 6 0RF Rx Instructions: take 500 mg today (day 1), then 250 mg for 4 days (days 2-5) PO
[2023-04-19 22:22] VITALS: BP 199/96; PULSE 94; RESP 16; TEMP 36.5; O2SAT 100; BMI 24.4
--- NOTE | 2023-04-19 22:52 | PC.NURSE ---
pt refused ct-scan. Dr. Stubbs aware
[2023-04-19 23:04] VITALS: BP 185/83
[2023-04-19 23:55] VITALS: BP 188/90; PULSE 78; O2SAT 97
[2023-04-20 00:14] VITALS: BP 183/92
[2023-04-20 00:35] VITALS: BP 192/98
== END 2023-04-20 00:58 | disposition home or self-care (01) ==
PROVIDERS: Emergency Provider Emergency Medicine; PCP Internal Medicine
DX: S01.01XA Laceration without foreign body of scalp, initial encounter (principal); W18.30XA Fall on same level, unspecified, initial encounter; Y93.89 Activity, other specified; Y92.9 Unspecified place or not applicable; Y99.9 Unspecified external cause status
CPT/HCPCS: 12001; 99284

== ENCOUNTER 2023-06-14 16:51 | Inpatient (IN) | payer MEDICARE, SELFPAY ==
--- NOTE | ~2023-06-14 | XR_ITS ---
EXAMINATION: XR FOOT, RIGHT CLINICAL INFORMATION: Pain. COMPARISON: None available. TECHNIQUE: AP, lateral, and oblique views of the right foot. FINDINGS: There is a small calcaneal heel spur. The ankle mortise and subtalar joints are normal. No visible acute fracture, dislocation or subluxation seen. The soft tissues are normal. XR/XR foot RT min 3V IMPRESSION: Small calcaneal heel spur. No visible acute fracture or dislocation seen.
--- NOTE | ~2023-06-14 | US_ITS ---
EXAMINATION: US VENOUS ULTRASOUND WITH DOPPLER LOWER EXTREMITY, BILATERAL CLINICAL INFORMATION: Edema right greater than left COMPARISON: None available. TECHNIQUE: Ultrasound of the deep veins is performed from the hip to the calf with compression sonography and color and pulse Doppler assessment. Spectral analysis with color-flow imaging is performed. FINDINGS: RIGHT: There is normal venous compression and respiratory variation and augmented flow. The visualized common femoral vein, superficial femoral vein, profunda femoral vein, popliteal vein, and the trifurcation region shows no evidence of deep venous thrombosis. There is no significant popliteal fossa cyst. LEFT: There is normal venous compression and respiratory variation and augmented flow. The visualized common femoral vein, superficial femoral vein, profunda femoral vein, popliteal vein, and the trifurcation region shows no evidence of deep venous thrombosis. There is no significant popliteal fossa cyst. If the patient's symptoms persist, followup ultrasound in 5 days 7 days might be of value to exclude proximal propagation from a non-visualized calf vein. US/US venous duplex LE BI IMPRESSION: No DVT demonstrated in the either lower extremity.
[2023-06-14 16:55] VITALS: BP 130/80; PULSE 90; O2SAT 97
[2023-06-14 17:15] VITALS: BP 157/71; PULSE 84; RESP 18; TEMP 36.6; O2SAT 96; BMI 22.8
--- NOTE | 2023-06-14 17:23 | ECG_ITS ---
Test Reason : BILATERAL EDEMA Blood Pressure : / mmHG Vent. Rate : 073 BPM Atrial Rate : 073 BPM P-R Int : 122 ms QRS Dur : 082 ms QT Int : 390 ms P-R-T Axes : 083 064 067 degrees QTc Int : 429 ms Normal sinus rhythm Possible Left atrial enlargement Borderline ECG When compared with ECG of 11-JUN-2022 08:15, No significant change was found Referred By: Generic ED Physician Electronically Signed By:ANTIONE SPRINGER
[2023-06-14 17:51] LABS: MANUAL DIFF FLAG NO
[2023-06-14 17:54] LABS: Basophils Percent Auto 0.5 % (0-2); Eosinophils Absolute Auto 0.2 X10*3/uL (0.0-0.4); Eosinophils Percent Auto 2.9 % (0-4); Hemoglobin 12.9 g/dl (12.0-16.0); Imm Gran Abs Auto 0.01 X10*3/uL (0.00-0.03); Imm Gran Pct Auto 0.2 % (0.0-0.4); Lymphocytes Absolute Auto 1.5 X10*3/uL (1.2-4.9); Lymphocytes Percent Auto 25.8 % (20-40); Mean Corpuscular HGB Conc 33.1 g/dl (31.0-35.0); Mean Corpuscular Hemoglobin 30.1 pg (27.0-33.0); Mean Corpuscular Volume 90.9 fL (80.0-98.0); Mean Platelet Volume 10.9 fL (9.4-12.3); Monocytes Absolute Auto 0.6 X10*3/uL (0.1-1.2); Monocytes Percent Auto 10.9 % (2-11); Neutrophils Absolute Auto 3.5 x10*3/uL (2.0-8.3); Neutrophils Percent Auto 59.7 % (45-73); Platelet Count 146 X10*3/uL (160-400); Red Blood Count 4.29 X10*6/uL (4.20-5.50); Red Cell Distribution Width 14.2 % (11.0-16.0); White Blood Count 5.8 X10*3/uL (4.8-10.8)
[2023-06-14 18:12] LABS: B Type Natriuretic Peptide 222 pg/mL (<100)
[2023-06-14 18:13] LABS: Anion Gap 11 (12-20); Blood Urea Nitrogen 25 mg/dL (9-16); Calcium 9.6 mg/dL (8.4-10.2); Carbon Dioxide 28 mmol/L (22-29); Chloride 110 mmol/L (96-108); Creatinine Clr Calc Pharmacy 54.9; Estimated Glomerular Filt Rate > 60; Glucose Random 118 mg/dL (60-115); Potassium 4.7 mmol/L (3.3-5.1); Sodium 144 mmol/L (135-145)
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
[2023-06-14 19:57] VITALS: BP 166/65; PULSE 87; RESP 18; TEMP 36.9; O2SAT 98
--- NOTE | 2023-06-14 19:59 | MHC.EDTECH ---
This tech assumed care of patient at 1900, hourly rounds and vitals were completed. Patient is frustrated because this tech asked to do vitals and feels like she is being used. LOLA Saucedo at bedside
--- NOTE | 2023-06-14 21:06 | PC.NURSE ---
this rn assumed care of pt at 1900. pt agitated by repeat vs and bruise from previous iv insertion attempt by previous shift nurse. pt refusing to provide urine sample at this time. this rn made manuelito barriga aware. no new orders at this time
[2023-06-14] MEDS: diphenhydrAMINE HCL 25 MG CAPSULE 50 MG PO (21:31)
--- NOTE | 2023-06-14 21:48 | PC.NURSE ---
this rn attempted to medicate pt, pt argumentative with this rn about taking both benadryl and haldol po. pt refusing to take haldol stating i have never heard of that, I am not going to take that. Show me a book about it . pt took benadryl po. pt swallowed medication, then spit towards this rn. this rn made pt aware that that is not acceptable behavior.pt states it tasted so bad i had to manuelito pa made aware
[2023-06-14 21:52] VITALS: RESP 18
--- NOTE | 2023-06-14 21:52 | MHC.EDTECH ---
Hourly rounds completed, vitals were refused resp rate within normal limits ,RN Sheryl is aware
--- NOTE | 2023-06-14 22:15 | PC.NURSE ---
per charge manager and ed provider manuelito barriga pt does not require sitter as pt denies SI/HI
[2023-06-14 23:51] VITALS: BP 176/75; PULSE 81; RESP 18; TEMP 36.9; O2SAT 97
--- NOTE | 2023-06-14 23:52 | MHC.EDTECH ---
Patient ambulate to the bathroom with a 1 assist,patient has a steady gait, obtained a UACC and sent to lab. Patient voided 800cc,and hourly rounds and vitals completed,Blood Pressure is elevate at 176/75 LOLA Saucedo was made aware. Patient is sitting on the side of stretcher at this time,refusing to lay down at this time
[2023-06-15 00:11] LABS: Appearance Urine Clear; Color Urine Yellow; Glucose Urine UA Negative (Negative); Leukocyte Esterase Urine Negative (Negative); Nitrite Urine Negative (Negative); Urine Blood Negative (Negative); Urine Ketones Trace mg/dL (Negative); Urine Protein Negative (Neg-Trace)
--- NOTE | 2023-06-15 00:15 | MHC.EDTECH ---
Patient is laying down at this time , lights dimmed and side rail is up.
[2023-06-15 00:19] LABS: Amphetamine Screen Urine Not Detected (Not Detect); Barbiturates, Urine Not Detected (Not Detect); Benzodiazepines Screen Urine Not Detected (Not Detect); Cannabinoid Screen Urine Not Detected (Not Detect); Cocaine Screen Urine Not Detected (Not Detect); Fentanyl, urine Not Detected (Not Detect); Opiate Screen Urine Not Detected (Not Detect); Phencyclidine Screen Urine Not Detected (Not Detect)
--- NOTE | 2023-06-15 01:15 | PC.NURSE ---
pt called to check on pt status. at this time pt sleeping lights dimmed. to be seen by mariam psych in am
[2023-06-15 02:09] VITALS: RESP 18
--- NOTE | 2023-06-15 02:09 | MHC.EDTECH ---
Hourly rounds completed, patient is sleeping and resp rate is within normal limits.
--- NOTE | 2023-06-15 03:06 | MHC.EDTECH ---
Patient giving a peanut butter and jelly sandwich and a cup of aletha keiry.
--- NOTE | 2023-06-15 03:43 | MHC.EDTECH ---
Belongings list completed, security at bedside,and locked in the Pod Locker # 10
--- NOTE | 2023-06-15 03:55 | MHC.EDTECH ---
Hourly rounds completed, patient refused vitals RN was made aware. Patient drank 120cc of aletha keiry, patient didn't touch her sandwich that was giving to her. This tech tried to get patient to lay down and she refused and stated this is not where she lives you cant make me . Patient is sitting on the edge of the stretcher at this time. All belongings were taken and secured in locker for safety.
--- NOTE | 2023-06-15 04:58 | PC.NURSE ---
pt sleeping at this time. rise and fall of chest noted rr 14
--- NOTE | 2023-06-15 05:02 | MHC.EDTECH ---
Patient ambulated to bathroom with a steady gait.
--- NOTE | 2023-06-15 05:57 | PC.NURSE ---
unable to confirm med rec. pt unable to verify medication. pt unable to be reached at this time
[2023-06-15 06:14] VITALS: RESP 16
--- NOTE | 2023-06-15 06:14 | MHC.EDTECH ---
Hourly rounds completed,patient refused vitals,resp. rate within normal limits. RN aware and call morales within reach,
--- NOTE | 2023-06-15 08:40 | PC.NURSE ---
assumed care of pt at 0700. pt alert and oriented to self. pt sts she's been having a rough time for the last few weeks. pt requests food, diet order in. pt reporting pain to the BLLE, neck, and sometimes belly, reporting the worst pain is in her feet rating pain 5/10. pt is calm at this time, asking about her and that she is worried about him and would like to reach him. will call. pt currently sitting up in bed, observing the ED. rr even/unlabored. all pt needs met bonnie. call morales within reach.
[2023-06-15 10:28] VITALS: BP 167/83; PULSE 101; RESP 16; TEMP 36.8; O2SAT 95
[2023-06-15 12:23] LABS: COVID-19 Test Negative (Negative); IDNOW Serial# 08D9AD1C
[2023-06-15 15:09] VITALS: BP 166/77; PULSE 83; RESP 16; TEMP 37.2; O2SAT 95
[2023-06-15 20:57] VITALS: BMI 21.7
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
[2023-06-16 07:00] VITALS: BMI 22.2
[2023-06-16 07:50] VITALS: BP 152/59; PULSE 88; RESP 18; TEMP 36.9; O2SAT 97
[2023-06-16 08:47] LABS: Alanine Aminotransferase 12 U/L (0-31); Albumin Level 4.1 g/dL (3.5-5.0); Alkaline Phosphatase 77 U/L (39-117); Anion Gap 12 (12-20); Aspartate Amino Transferase 23 U/L (5-31); Bilirubin Total 0.8 mg/dL (0.0-1.0); Blood Urea Nitrogen 17 mg/dL (9-16); Calcium 9.6 mg/dL (8.4-10.2); Carbon Dioxide 28 mmol/L (22-29); Chloride 105 mmol/L (96-108); Cholesterol 176 mg/dL (<200); Creatinine Clr Calc Pharmacy 50.7; Estimated Glomerular Filt Rate > 60; Glucose Fasting 207 mg/dL (60-99); HDL Cholesterol 58 mg/dL (>40); LDL Cholesterol Calculated 106 mg/dL (<100); Potassium 3.8 mmol/L (3.3-5.1); Sodium 141 mmol/L (135-145); Triglycerides 60 mg/dL (<150)
[2023-06-16 09:01] LABS: Thyroid Stimulating Hormone 2.97 uIU/mL (0.32-4.0)
[2023-06-16 09:19] LABS: Folate 9.9 ng/mL (> or = 4.0); Vitamin B12 436 pg/mL (200-900)
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
[2023-06-16 18:00] VITALS: BP 146/67; PULSE 68; RESP 18; TEMP 36.5; O2SAT 100
[2023-06-16] MEDS: risperiDONE 1 MG TABLET PO (21:17)
[2023-06-17 08:25] VITALS: BP 155/70; PULSE 72; RESP 18; TEMP 36.5; O2SAT 97
[2023-06-17] MEDS: hydroCHLOROthiazide 12.5 MG TABLET PO (08:31)
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
[2023-06-17 18:00] VITALS: BP 159/70; PULSE 70; RESP 18; O2SAT 99
[2023-06-17] MEDS: risperiDONE 1 MG TABLET PO (20:53)
[2023-06-18 09:08] VITALS: BP 125/60; PULSE 93; RESP 16; TEMP 36.8; O2SAT 99
[2023-06-18] MEDS: risperiDONE 1 MG TABLET PO ×2 (09:09→20:54)
--- NOTE | 2023-06-18 13:06 | HO.PSYCHPN ---
Subjective Subjective Date of Service: 06/18/23 Reason For Visit: psychosis aggression Subjective Notes: Section 12B Interim History: Patient was seen and discussed in rounds today. Records and plans were reviewed. She continues to be guarded, somewhat hypomanic and labile. Self dialogue is observed. Eating and sleeping adequately. No complaints or side effects. No changes were made today Review of Systems Review of Systems Yes all other systems are reviewed and are negative Mental Status Exam Mental Status Exam Narrative: In today's visit she is alert, oriented x2. Speech is normal. Good eye contact. Affect is appropriate and labile. appears to be internally preoccupied. Some paranoia present. No AVH. No SI. Cognitively is impaired. Judgment is impaired Diagnostics Vital Signs (24Hr): Vital Signs - 24 hr 06/17/23 18:00 06/18/23 09:08 Temperature 98.2 F Pulse Rate 70 93 Respiratory Rate 18 16 Blood Pressure 159/70 H 125/60 Pulse Oximetry 99 99 Oxygen Delivery Method Room Air Room Air BMI result Body Mass Index 22.2 Labs 06/14/23 17:43 06/16/23 08:16 Imaging Radiology Impressions: ITS Impressions Foot X-Ray 06/14/23 18:05 IMPRESSION: Small calcaneal heel spur. No visible acute fracture or dislocation seen. Venous Duplex 06/16/23 17:52 IMPRESSION: No DVT demonstrated in the either lower extremity. Medications Medications Current Medications Acetaminophen (Acetaminophen 325 Mg Tablet) 650 mg PO Q6H PRN PRN Reason: Headache/Pain Mild Scale (1-3) Al Hydroxide/Mg Hydroxide (Magnesium Hydrox/Alum Hydrox 30 Ml Oral.Susp) 30 ml PO Q6H PRN PRN Reason: Heartburn/Nausea Hydrochlorothiazide (Hydrochlorothiazide 12.5 Mg Tablet) 12.5 mg PO DAILY [facility]; Protocol Last Admin: 06/18/23 09:11 Dose: Not Given Hydroxyzine HCl (Hydroxyzine Hcl 25 Mg Tablet) 25 mg PO Q6H PRN PRN Reason: Anxiety Lactic Acid (Ammonium Lactate 12 % Lotion 226 Gm Bottle) 1 appl TOPICAL BID PRN; Protocol PRN Reason: Dry Skin Lorazepam (Lorazepam 0.5 Mg Tablet) 0.5 mg PO Q6H PRN PRN Reason: anxiety/restlessness Magnesium Hydroxide (Milk Of Magnesia 30 Ml Oral.Susp) 30 ml PO DAILY PRN PRN Reason: Constipation Risperidone (Risperidone 0.25 Mg Tablet) 0.25 mg PO Q4H PRN PRN Reason: Psychosis Risperidone (Risperidone 1 Mg Tablet) 1 mg PO BID [facility] Last Admin: 06/18/23 09:09 Dose: 1 mg Trazodone HCl (Trazodone Hcl 50 Mg Tablet) 50 mg PO BEDTIME MRX1 PRN PRN Reason: Insomnia Allergies Allergies Allergy/AdvReac Type Severity Reaction Status Date / Time NSAIDS (Non-Steroidal Allergy Intermediate STOMACH Verified 07/06/22 17:19 Anti-Inflamma UPSET [NSAIDS] Assessment & Plan Assessment & Plan (1) Schizophrenia, paranoid, chronic with acute exacerbation: Status: Acute Code(s): F20.0 - Paranoid schizophrenia (2) Major neurocognitive disorder: Status: Acute Code(s): F03.90 - Unspecified dementia, unspecified severity, without behavioral disturbance, psychotic disturbance, mood disturbance, and anxiety Plan Mrs. Marcus is 73 year-old woman with hx of schizophrenia and dementia who was brought to paranoid, agitation holding knife asking to stab her. Hx of aggression towards . Significant concern about her ability to care for herself- inlcuding being able to get food, follow up with doctors. 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 There is also concern about her ability to care for pt and himself. PLAN 1. continue current medications. seen by hospitalist north leg edema, started on hydroclorothiazide 06/18: Continue current regimen and plans Reason for continued inpatient stay Substantial Risk for: rapid decompensation Time Spent With Patient Time: Total time managing care of this patient today ____ minutes.
[2023-06-18 18:00] VITALS: BP 120/60; PULSE 71; RESP 18; TEMP 36.5; O2SAT 98
[2023-06-19 08:25] VITALS: BP 140/66; PULSE 85; RESP 16; TEMP 36.5; O2SAT 98
[2023-06-19] MEDS: risperiDONE 1 MG TABLET PO ×2 (08:26→20:02)
[2023-06-19] MEDS: hydroCHLOROthiazide 12.5 MG TABLET PO (08:26)
--- NOTE | 2023-06-19 11:04 | P.PNPSI_ITS ---
Subjective Subjective Date of Service: 06/19/23 Reason For Visit: psychosis aggression Subjective Notes: Section 12B Interim History: Patient was seen and discussed in rounds today. Records and plans were reviewed. She has been pleasant and cooperative but continues to be hypomanic, hyperverbal, paranoid and delusional. No complaints or side effects. Eating a nd sleeping adequately. No changes were made today Review of Systems Review of Systems Yes all other systems are reviewed and are negative Mental Status Exam Mental Status Exam Narrative: In today's visit she is alert, oriented x2. Speech is normal. Good eye contact. Affect is appropriate and labile. appears to be internally preoccupied. Some paranoia present. No AVH. No SI. Cognitively is impaired. Judgment is impaired Diagnostics Vital Signs (24Hr): Vital Signs - 24 hr 06/18/23 18:00 06/19/23 08:25 Temperature 97.7 F 97.7 F Pulse Rate 71 85 Respiratory Rate 18 16 Blood Pressure 120/60 140/66 H Pulse Oximetry 98 98 Oxygen Delivery Method Room Air Room Air BMI result Body Mass Index 22.2 Labs 06/14/23 17:43 06/16/23 08:16 Imaging Radiology Impressions: ITS Impressions Foot X-Ray 06/14/23 18:05 IMPRESSION: Small calcaneal heel spur. No visible acute fracture or dislocation seen. Venous Duplex 06/16/23 17:52 IMPRESSION: No DVT demonstrated in the either lower extremity. Medications Medications Current Medications Acetaminophen (Acetaminophen 325 Mg Tablet) 650 mg PO Q6H PRN PRN Reason: Headache/Pain Mild Scale (1-3) Al Hydroxide/Mg Hydroxide (Magnesium Hydrox/Alum Hydrox 30 Ml Oral.Susp) 30 ml PO Q6H PRN PRN Reason: Heartburn/Nausea Hydrochlorothiazide (Hydrochlorothiazide 12.5 Mg Tablet) 12.5 mg PO DAILY [facility]; Protocol Last Admin: 06/19/23 08:26 Dose: 12.5 mg Hydroxyzine HCl (Hydroxyzine Hcl 25 Mg Tablet) 25 mg PO Q6H PRN PRN Reason: Anxiety Lactic Acid (Ammonium Lactate 12 % Lotion 226 Gm Bottle) 1 appl TOPICAL BID PRN; Protocol PRN Reason: Dry Skin Lorazepam (Lorazepam 0.5 Mg Tablet) 0.5 mg PO Q6H PRN PRN Reason: anxiety/restlessness Magnesium Hydroxide (Milk Of Magnesia 30 Ml Oral.Susp) 30 ml PO DAILY PRN PRN Reason: Constipation Risperidone (Risperidone 0.25 Mg Tablet) 0.25 mg PO Q4H PRN PRN Reason: Psychosis Risperidone (Risperidone 1 Mg Tablet) 1 mg PO BID [facility] Last Admin: 06/19/23 08:26 Dose: 1 mg Trazodone HCl (Trazodone Hcl 50 Mg Tablet) 50 mg PO BEDTIME MRX1 PRN PRN Reason: Insomnia Allergies Allergies Allergy/AdvReac Type Severity Reaction Status Date / Time NSAIDS (Non-Steroidal Allergy Intermediate STOMACH Verified 07/06/22 17:19 Anti-Inflamma UPSET [NSAIDS] Assessment & Plan Assessment & Plan (1) Schizophrenia, paranoid, chronic with acute exacerbation: Status: Acute Code(s): F20.0 - Paranoid schizophrenia (2) Major neurocognitive disorder: Status: Acute Code(s): F03.90 - Unspecified dementia, unspecified severity, without behavioral disturbance, psychotic disturbance, mood disturbance, and anxiety Plan Mrs. Marcus is 73 year-old woman with hx of schizophrenia and dementia who was brought to paranoid, agitation holding knife asking to stab her. Hx of aggression towards . Significant concern about her ability to care for herself- inlcuding being able to get food, follow up with doctors. 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 There is also concern about her ability to care for pt and himself. PLAN 1. continue current medications. seen by hospitalist north leg edema, started on hydroclorothiazide 06/18: Continue current regimen and plans 06/19: Continue current plans and regimen Reason for continued inpatient stay Substantial Risk for: rapid decompensation Time Spent With Patient Time: Total time managing care of this patient today ____ minutes.
[2023-06-19 18:00] VITALS: BP 141/75; PULSE 75; RESP 17; TEMP 36.3; O2SAT 98
[2023-06-20 08:15] VITALS: BP 134/62; PULSE 79; RESP 18; TEMP 37.1; O2SAT 99
[2023-06-20] MEDS: risperiDONE 1 MG TABLET PO ×2 (08:18→20:11)
[2023-06-20] MEDS: hydroCHLOROthiazide 12.5 MG TABLET PO (08:18)
[2023-06-20 10:02] LABS: Anion Gap 13 (12-20); Blood Urea Nitrogen 19 mg/dL (9-16); Calcium 9.7 mg/dL (8.4-10.2); Carbon Dioxide 27 mmol/L (22-29); Chloride 108 mmol/L (96-108); Creatinine Clr Calc Pharmacy 50.7; Estimated Glomerular Filt Rate > 60; Glucose Random 150 mg/dL (60-115); Potassium 3.6 mmol/L (3.3-5.1); Sodium 144 mmol/L (135-145)
--- NOTE | 2023-06-20 10:10 | P.PNPSI_ITS ---
Subjective Subjective Date of Service: 06/20/23 Reason For Visit: psychosis aggression Subjective Notes: Section 12B Interim History: Patient was seen and discussed in rounds today. Records and plans were reviewed. She has continues to be disorganized with some paranoid ideations. She has been medication compliant. Labs were drawn this morning. Eating and sl eeping adequately. No complaints or side effects. No changes were made today Review of Systems Review of Systems Yes all other systems are reviewed and are negative Mental Status Exam Mental Status Exam Narrative: In today's visit she is alert, oriented x2. Speech is normal. Good eye contact. Affect is appropriate and labile. appears to be internally preoccupied. Some paranoia present. No AVH. No SI. Cognitively is impaired. Judgment is impaired Diagnostics Vital Signs (24Hr): Vital Signs - 24 hr 06/19/23 18:00 06/20/23 08:15 Temperature 97.4 F 98.7 F Pulse Rate 75 79 Respiratory Rate 17 18 Blood Pressure 141/75 H 134/62 Pulse Oximetry 98 99 Oxygen Delivery Method Room Air Room Air BMI result Body Mass Index 22.2 Labs 06/14/23 17:43 06/20/23 08:56 Labs: Laboratory Results - last 48 hr 06/20/23 08:56 Sodium 144 Potassium 3.6 Chloride 108 Carbon Dioxide 27 Anion Gap 13 BUN 19 H Creatinine 0.77 Estim Creat Clear Calc 50.7 Estimated GFR > 60 Random Glucose 150 H Calcium 9.7 Imaging Radiology Impressions: ITS Impressions Foot X-Ray 06/14/23 18:05 IMPRESSION: Small calcaneal heel spur. No visible acute fracture or dislocation seen. Venous Duplex 06/16/23 17:52 IMPRESSION: No DVT demonstrated in the either lower extremity. Medications Medications Current Medications Acetaminophen (Acetaminophen 325 Mg Tablet) 650 mg PO Q6H PRN PRN Reason: Headache/Pain Mild Scale (1-3) Al Hydroxide/Mg Hydroxide (Magnesium Hydrox/Alum Hydrox 30 Ml Oral.Susp) 30 ml PO Q6H PRN PRN Reason: Heartburn/Nausea Hydrochlorothiazide (Hydrochlorothiazide 12.5 Mg Tablet) 12.5 mg PO DAILY [facility]; Protocol Last Admin: 06/20/23 08:18 Dose: 12.5 mg Hydroxyzine HCl (Hydroxyzine Hcl 25 Mg Tablet) 25 mg PO Q6H PRN PRN Reason: Anxiety Lactic Acid (Ammonium Lactate 12 % Lotion 226 Gm Bottle) 1 appl TOPICAL BID PRN; Protocol PRN Reason: Dry Skin Lorazepam (Lorazepam 0.5 Mg Tablet) 0.5 mg PO Q6H PRN PRN Reason: anxiety/restlessness Magnesium Hydroxide (Milk Of Magnesia 30 Ml Oral.Susp) 30 ml PO DAILY PRN PRN Reason: Constipation Risperidone (Risperidone 0.25 Mg Tablet) 0.25 mg PO Q4H PRN PRN Reason: Psychosis Risperidone (Risperidone 1 Mg Tablet) 1 mg PO BID [facility] Last Admin: 06/20/23 08:18 Dose: 1 mg Trazodone HCl (Trazodone Hcl 50 Mg Tablet) 50 mg PO BEDTIME MRX1 PRN PRN Reason: Insomnia Allergies Allergies Allergy/AdvReac Type Severity Reaction Status Date / Time NSAIDS (Non-Steroidal Allergy Intermediate STOMACH Verified 07/06/22 17:19 Anti-Inflamma UPSET [NSAIDS] Assessment & Plan Assessment & Plan (1) Schizophrenia, paranoid, chronic with acute exacerbation: Status: Acute Code(s): F20.0 - Paranoid schizophrenia (2) Major neurocognitive disorder: Status: Acute Code(s): F03.90 - Unspecified dementia, unspecified severity, without behavioral disturbance, psychotic disturbance, mood disturbance, and anxiety Plan Mrs. Marcus is 73 year-old woman with hx of schizophrenia and dementia who was brought to paranoid, agitation holding knife asking to stab her. Hx of aggression towards . Significant concern about her ability to care for herself- inlcuding being able to get food, follow up with doctors. 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 There is also concern about her ability to care for pt and himself. PLAN 1. continue current medications. seen by hospitalist north leg edema, started on hydroclorothiazide 06/18: Continue current regimen and plans 06/19: Continue current plans and regimen 06/20: Continue current plans and regimen Reason for continued inpatient stay Substantial Risk for: rapid decompensation Time Spent With Patient Time: Total time managing care of this patient today ____ minutes.
[2023-06-20 18:00] VITALS: BP 135/65; PULSE 85; RESP 18; TEMP 36.7; O2SAT 99
[2023-06-21 08:20] VITALS: BP 135/63; PULSE 84; RESP 16; TEMP 37.2; O2SAT 99
[2023-06-21] MEDS: risperiDONE 1 MG TABLET PO ×2 (08:45→20:04)
[2023-06-21] MEDS: hydroCHLOROthiazide 12.5 MG TABLET PO (08:45)
--- NOTE | 2023-06-21 10:15 | P.PNPSI_ITS ---
Subjective Subjective Date of Service: 06/21/23 Reason For Visit: psychosis aggression Subjective Notes: Section 12B Interim History: Pt less paranoid but thought process disorganized. She appears unaware as to why she and her did not have food or water. She does not appear to be able to follow up with medical appointments. Her BP is better with hydroclor othiazide. She is taking risperidone. Per nursing, pt slept through the night. No behavioral concerns but significant concern in terms of her ability to care for herself in the community. Review of Systems Review of Systems No SOB. No chest pain Bilat LE edema Yes all other systems are reviewed and are negative Constitutional: Denies chills and Denies fever(s) Cardiovascular: Denies chest pain, Reports leg edema and Denies dyspnea Respiratory: Denies cough and Denies dyspnea Gastrointestinal: Denies abdominal pain Musculoskeletal: Reports arthralgias ( right foot pain) Skin/Breast: Denies erythema and Denies rash Psychiatric: Reports homicidal ideation Mental Status Exam Mental Status Exam Narrative: Appearance:wearing casual clothing, fair hygiene, in NAD Behavior:calmer Psychomotor: no agitation or retardation noted Speech:mostly clear, regular rate/rhythm/volume, spontaneous TP:disorganized TC: less paranoid, Mood: fine Affect:somewhat expansive at times VH/AH:less AH/VH Delusions:less paranoid delusions Insight/judgment:impaired x 2. Memory/cog:alert, oriented not oriented to situation. pending moca and ACL. Diagnostics Vital Signs (24Hr): Vital Signs - 24 hr 06/20/23 18:00 06/21/23 08:20 Temperature 98.1 F 98.9 F Pulse Rate 85 84 Respiratory Rate 18 16 Blood Pressure 135/65 135/63 Pulse Oximetry 99 99 Oxygen Delivery Method Room Air Room Air BMI result Body Mass Index 22.2 Labs 06/14/23 17:43 06/20/23 08:56 Labs: Laboratory Results - last 48 hr 06/20/23 08:56 Sodium 144 Potassium 3.6 Chloride 108 Carbon Dioxide 27 Anion Gap 13 BUN 19 H Creatinine 0.77 Estim Creat Clear Calc 50.7 Estimated GFR > 60 Random Glucose 150 H Calcium 9.7 Imaging Radiology Impressions: ITS Impressions Foot X-Ray 06/14/23 18:05 IMPRESSION: Small calcaneal heel spur. No visible acute fracture or dislocation seen. Venous Duplex 06/16/23 17:52 IMPRESSION: No DVT demonstrated in the either lower extremity. Medications Medications Current Medications Acetaminophen (Acetaminophen 325 Mg Tablet) 650 mg PO Q6H PRN PRN Reason: Headache/Pain Mild Scale (1-3) Al Hydroxide/Mg Hydroxide (Magnesium Hydrox/Alum Hydrox 30 Ml Oral.Susp) 30 ml PO Q6H PRN PRN Reason: Heartburn/Nausea Hydrochlorothiazide (Hydrochlorothiazide 12.5 Mg Tablet) 12.5 mg PO DAILY [facility]; Protocol Last Admin: 06/21/23 08:45 Dose: 12.5 mg Hydroxyzine HCl (Hydroxyzine Hcl 25 Mg Tablet) 25 mg PO Q6H PRN PRN Reason: Anxiety Lactic Acid (Ammonium Lactate 12 % Lotion 226 Gm Bottle) 1 appl TOPICAL BID PRN; Protocol PRN Reason: Dry Skin Magnesium Hydroxide (Milk Of Magnesia 30 Ml Oral.Susp) 30 ml PO DAILY PRN PRN Reason: Constipation Risperidone (Risperidone 0.25 Mg Tablet) 0.25 mg PO Q4H PRN PRN Reason: Psychosis Risperidone (Risperidone 1 Mg Tablet) 1 mg PO BID [facility] Last Admin: 06/21/23 08:45 Dose: 1 mg Trazodone HCl (Trazodone Hcl 50 Mg Tablet) 50 mg PO BEDTIME MRX1 PRN PRN Reason: Insomnia Allergies Allergies Allergy/AdvReac Type Severity Reaction Status Date / Time NSAIDS (Non-Steroidal Allergy Intermediate STOMACH Verified 07/06/22 17:19 Anti-Inflamma UPSET [NSAIDS] Assessment & Plan Assessment & Plan (1) Schizophrenia, paranoid, chronic with acute exacerbation: Status: Acute Code(s): F20.0 - Paranoid schizophrenia (2) Major neurocognitive disorder: Status: Acute Code(s): F03.90 - Unspecified dementia, unspecified severity, without behavioral disturbance, psychotic disturbance, mood disturbance, and anxiety Plan Medical consult for patient with lower leg edema and hypertension. Pt states has been experiencing new lower-leg edema the past few weeks. Lower leg edema Pt complaining of lower leg edema with associated skin tightness for a few weeks Right worse than left Denies calf pain Venous duplex US of LE bilaterally negative for DVT Heber wrap on right lower leg Elevate legs Encourage ambulation Will start on hydrochlorothiazide 12.5 mg daily Will check BMP in 3-4 days Hypertension BP remains elevated with last reading 152/59 Patient previously on amlodipine 5 mg, though currently not on antihypertensives Will hold off on restarting amlodipine d/t lower leg edema Will start hydrochlorothiazide 12.5 mg daily Will check BMP in 3-4 days Chronic venous stasis dermatitis Lac-Hydrin 12% topic lotion to lower legs prn for dry skin Will continue to follow for now to monitor BP and BMP. PSYCH 06/21 continue current medications, pending MOCA and ACL. Reason for continued inpatient stay Substantial Risk for: inability to function Time Spent With Patient Time: Total time managing care of this patient today ____ minutes.
[2023-06-21 18:00] VITALS: BP 142/67; PULSE 77; RESP 20; TEMP 36.3; O2SAT 100
[2023-06-22 08:30] VITALS: BP 157/66; PULSE 79; RESP 20; TEMP 36; O2SAT 100
--- NOTE | 2023-06-22 14:59 | P.PNPSI_ITS ---
Subjective Subjective Date of Service: 06/22/23 Reason For Visit: psychosis aggression Subjective Notes: Section 7 Interim History: Pt declined medications this morning. When asked she did not provide any explanation. She reports sleeping well. She is not oriented to situation, not sure why she is here or how long she has been here. She asks for twizers to my eye brows. She denies SI/HI. She continues to present with some paranoia but of most concern if her severe cognitive impairment and ability to live on her own. Review of Systems Review of Systems No SOB. No chest pain Bilat LE edema Yes all other systems are reviewed and are negative Constitutional: Denies chills and Denies fever(s) Cardiovascular: Denies chest pain, Reports leg edema and Denies dyspnea Respiratory: Denies cough and Denies dyspnea Gastrointestinal: Denies abdominal pain Musculoskeletal: Reports arthralgias ( right foot pain) Skin/Breast: Denies erythema and Denies rash Psychiatric: Reports homicidal ideation Mental Status Exam Mental Status Exam Narrative: Appearance:wearing casual clothing, fair hygiene, in NAD Behavior:calmer Psychomotor: no agitation or retardation noted Speech:mostly clear, regular rate/rhythm/volume, spontaneous TP:disorganized TC: less paranoid, Mood: fine Affect:somewhat expansive at times VH/AH:less AH/VH Delusions:less paranoid delusions Insight/judgment:impaired x 2. Memory/cog:alert, oriented not oriented to situation. pending moca and ACL. Diagnostics Vital Signs (24Hr): Vital Signs - 24 hr 06/21/23 18:00 06/22/23 08:30 Temperature 97.4 F 96.8 F Pulse Rate 77 79 Respiratory Rate 20 20 Blood Pressure 142/67 H 157/66 H Pulse Oximetry 100 100 Oxygen Delivery Method Room Air Room Air BMI result Body Mass Index 22.2 Labs 06/14/23 17:43 06/20/23 08:56 Imaging Radiology Impressions: ITS Impressions Foot X-Ray 06/14/23 18:05 IMPRESSION: Small calcaneal heel spur. No visible acute fracture or dislocation seen. Venous Duplex 06/16/23 17:52 IMPRESSION: No DVT demonstrated in the either lower extremity. Medications Medications Current Medications Acetaminophen (Acetaminophen 325 Mg Tablet) 650 mg PO Q6H PRN PRN Reason: Headache/Pain Mild Scale (1-3) Al Hydroxide/Mg Hydroxide (Magnesium Hydrox/Alum Hydrox 30 Ml Oral.Susp) 30 ml PO Q6H PRN PRN Reason: Heartburn/Nausea Hydrochlorothiazide (Hydrochlorothiazide 12.5 Mg Tablet) 12.5 mg PO DAILY [facility]; Protocol Last Admin: 06/22/23 08:30 Dose: Not Given Hydroxyzine HCl (Hydroxyzine Hcl 25 Mg Tablet) 25 mg PO Q6H PRN PRN Reason: Anxiety Lactic Acid (Ammonium Lactate 12 % Lotion 226 Gm Bottle) 1 appl TOPICAL BID PRN; Protocol PRN Reason: Dry Skin Magnesium Hydroxide (Milk Of Magnesia 30 Ml Oral.Susp) 30 ml PO DAILY PRN PRN Reason: Constipation Risperidone (Risperidone 0.25 Mg Tablet) 0.25 mg PO Q4H PRN PRN Reason: Psychosis Risperidone (Risperidone 1 Mg Tablet) 1 mg PO BID [facility] Last Admin: 06/22/23 08:30 Dose: Not Given Trazodone HCl (Trazodone Hcl 50 Mg Tablet) 50 mg PO BEDTIME MRX1 PRN PRN Reason: Insomnia Allergies Allergies Allergy/AdvReac Type Severity Reaction Status Date / Time NSAIDS (Non-Steroidal Allergy Intermediate STOMACH Verified 07/06/22 17:19 Anti-Inflamma UPSET [NSAIDS] Assessment & Plan Assessment & Plan (1) Schizophrenia, paranoid, chronic with acute exacerbation: Status: Acute Code(s): F20.0 - Paranoid schizophrenia (2) Major neurocognitive disorder: Status: Acute Code(s): F03.90 - Unspecified dementia, unspecified severity, without behavioral disturbance, psychotic disturbance, mood disturbance, and anxiety Plan Medical consult for patient with lower leg edema and hypertension. Pt states has been experiencing new lower-leg edema the past few weeks. Lower leg edema Pt complaining of lower leg edema with associated skin tightness for a few weeks Right worse than left Denies calf pain Venous duplex US of LE bilaterally negative for DVT Heber wrap on right lower leg Elevate legs Encourage ambulation Will start on hydrochlorothiazide 12.5 mg daily Will check BMP in 3-4 days Hypertension BP remains elevated with last reading 152/59 Patient previously on amlodipine 5 mg, though currently not on antihypertensives Will hold off on restarting amlodipine d/t lower leg edema Will start hydrochlorothiazide 12.5 mg daily Will check BMP in 3-4 days Chronic venous stasis dermatitis Lac-Hydrin 12% topic lotion to lower legs prn for dry skin Will continue to follow for now to monitor BP and BMP. PSYCH 06/21 continue current medications, pending MOCA and ACL. 06/22 continue tx. pending MOCA/ACL. Reason for continued inpatient stay Substantial Risk for: inability to function Time Spent With Patient Time: Total time managing care of this patient today ____ minutes.
[2023-06-22 20:09] VITALS: BP 141/69; PULSE 95; RESP 18; TEMP 36.2; O2SAT 98
[2023-06-22] MEDS: risperiDONE 1 MG TABLET PO (20:10)
[2023-06-23 07:00] VITALS: BMI 22.8
[2023-06-23 08:13] VITALS: BP 125/54; PULSE 75; RESP 18; TEMP 35.9; O2SAT 97
[2023-06-23] MEDS: risperiDONE 1 MG TABLET PO ×2 (08:39→20:29)
--- NOTE | 2023-06-23 08:53 | PC.NURSE ---
AM BP of 125/54 w/ HR of 75. hydrochlorothiazide held. Provider aware
--- NOTE | 2023-06-23 16:03 | HO.PSYCHPN ---
Subjective Subjective Date of Service: 06/23/23 Reason For Visit: psychosis aggression Subjective Notes: Section 7 Interim History: Pt visible on the unit, at times declines medication for unclear reasons as she denies any problems. Pt denies SI/HI. Not oriented to situation. Pt slept through the night. Pt at times staring, laughing inappropriately when asked to explain what's going on, would not elaborate. Pending MOCA and ACL. Review of Systems Review of Systems No SOB. No chest pain Bilat LE edema Yes all other systems are reviewed and are negative Constitutional: Denies chills and Denies fever(s) Cardiovascular: Denies chest pain, Reports leg edema and Denies dyspnea Respiratory: Denies cough and Denies dyspnea Gastrointestinal: Denies abdominal pain Musculoskeletal: Reports arthralgias ( right foot pain) Skin/Breast: Denies erythema and Denies rash Psychiatric: Reports homicidal ideation Mental Status Exam Mental Status Exam Narrative: Appearance:wearing casual clothing, fair hygiene, in NAD Behavior:calmer Psychomotor: no agitation or retardation noted Speech:mostly clear, regular rate/rhythm/volume, spontaneous TP:disorganized TC: less paranoid, Mood: fine Affect:somewhat expansive at times VH/AH:less AH/VH Delusions:less paranoid delusions Insight/judgment:impaired x 2. Memory/cog:alert, oriented not oriented to situation. pending moca and ACL. Diagnostics Vital Signs (24Hr): Vital Signs - 24 hr 06/22/23 20:09 06/23/23 08:13 Temperature 97.2 F 96.6 F L Pulse Rate 95 75 Respiratory Rate 18 18 Blood Pressure 141/69 H 125/54 L Pulse Oximetry 98 97 Oxygen Delivery Method Room Air Room Air BMI result Body Mass Index 22.8 Labs 06/14/23 17:43 06/20/23 08:56 Imaging Radiology Impressions: ITS Impressions Foot X-Ray 06/14/23 18:05 IMPRESSION: Small calcaneal heel spur. No visible acute fracture or dislocation seen. Venous Duplex 06/16/23 17:52 IMPRESSION: No DVT demonstrated in the either lower extremity. Medications Medications Current Medications Acetaminophen (Acetaminophen 325 Mg Tablet) 650 mg PO Q6H PRN PRN Reason: Headache/Pain Mild Scale (1-3) Al Hydroxide/Mg Hydroxide (Magnesium Hydrox/Alum Hydrox 30 Ml Oral.Susp) 30 ml PO Q6H PRN PRN Reason: Heartburn/Nausea Hydrochlorothiazide (Hydrochlorothiazide 12.5 Mg Tablet) 12.5 mg PO DAILY [facility]; Protocol Last Admin: 06/23/23 08:40 Dose: Not Given Hydroxyzine HCl (Hydroxyzine Hcl 25 Mg Tablet) 25 mg PO Q6H PRN PRN Reason: Anxiety Lactic Acid (Ammonium Lactate 12 % Lotion 226 Gm Bottle) 1 appl TOPICAL BID PRN; Protocol PRN Reason: Dry Skin Magnesium Hydroxide (Milk Of Magnesia 30 Ml Oral.Susp) 30 ml PO DAILY PRN PRN Reason: Constipation Risperidone (Risperidone 0.25 Mg Tablet) 0.25 mg PO Q4H PRN PRN Reason: Psychosis Risperidone (Risperidone 1 Mg Tablet) 1 mg PO BID [facility] Last Admin: 06/23/23 08:39 Dose: 1 mg Trazodone HCl (Trazodone Hcl 50 Mg Tablet) 50 mg PO BEDTIME MRX1 PRN PRN Reason: Insomnia Allergies Allergies Allergy/AdvReac Type Severity Reaction Status Date / Time NSAIDS (Non-Steroidal Allergy Intermediate STOMACH Verified 07/06/22 17:19 Anti-Inflamma UPSET [NSAIDS] Assessment & Plan Assessment & Plan (1) Schizophrenia, paranoid, chronic with acute exacerbation: Status: Acute Code(s): F20.0 - Paranoid schizophrenia (2) Major neurocognitive disorder: Status: Acute Code(s): F03.90 - Unspecified dementia, unspecified severity, without behavioral disturbance, psychotic disturbance, mood disturbance, and anxiety Plan Medical consult for patient with lower leg edema and hypertension. Pt states has been experiencing new lower-leg edema the past few weeks. Lower leg edema Pt complaining of lower leg edema with associated skin tightness for a few weeks Right worse than left Denies calf pain Venous duplex US of LE bilaterally negative for DVT Heber wrap on right lower leg Elevate legs Encourage ambulation Will start on hydrochlorothiazide 12.5 mg daily Will check BMP in 3-4 days Hypertension BP remains elevated with last reading 152/59 Patient previously on amlodipine 5 mg, though currently not on antihypertensives Will hold off on restarting amlodipine d/t lower leg edema Will start hydrochlorothiazide 12.5 mg daily Will check BMP in 3-4 days Chronic venous stasis dermatitis Lac-Hydrin 12% topic lotion to lower legs prn for dry skin Will continue to follow for now to monitor BP and BMP. PSYCH 06/21 continue current medications, pending MOCA and ACL. 06/22 continue tx. pending MOCA/ACL. 06/23 continue tx. pending moca ACL. Reason for continued inpatient stay Substantial Risk for: inability to function Time Spent With Patient Time: Total time managing care of this patient today ____ minutes.
[2023-06-23 18:00] VITALS: BP 116/58; PULSE 68; RESP 17; TEMP 36.6; O2SAT 100
[2023-06-24 08:00] VITALS: BP 116/59; PULSE 87; RESP 17; TEMP 36.4; O2SAT 97
[2023-06-24] MEDS: hydroCHLOROthiazide 12.5 MG TABLET PO (08:28)
[2023-06-24] MEDS: risperiDONE 1 MG TABLET PO ×2 (08:28→21:10)
--- NOTE | 2023-06-24 13:39 | HO.PSYCHPN ---
Subjective Subjective Date of Service: 06/24/23 Reason For Visit: psychosis aggression Subjective Notes: Section 7 Interim History: Pt appears confused as to why she is here. She is suspicious of staff and others in that she does not seem process why she is here. She denies SI/HI. She does report that she is sleeping well. She is taking most medications as prescribed, occasionally declines for unclear reasons. Pending MOCA and ACL. Review of Systems Review of Systems No SOB. No chest pain Bilat LE edema Yes all other systems are reviewed and are negative Constitutional: Denies chills and Denies fever(s) Cardiovascular: Denies chest pain, Reports leg edema and Denies dyspnea Respiratory: Denies cough and Denies dyspnea Gastrointestinal: Denies abdominal pain Musculoskeletal: Reports arthralgias ( right foot pain) Skin/Breast: Denies erythema and Denies rash Psychiatric: Reports homicidal ideation Mental Status Exam Mental Status Exam Narrative: Appearance:wearing casual clothing, fair hygiene, in NAD Behavior:calmer Psychomotor: no agitation or retardation noted Speech:mostly clear, regular rate/rhythm/volume, spontaneous TP:disorganized TC: less paranoid, Mood: fine Affect:somewhat expansive at times VH/AH:less AH/VH Delusions:less paranoid delusions Insight/judgment:impaired x 2. Memory/cog:alert, oriented not oriented to situation. pending moca and ACL. Diagnostics Vital Signs (24Hr): Vital Signs - 24 hr 06/23/23 18:00 06/24/23 08:00 Temperature 97.9 F 97.5 F Pulse Rate 68 87 Respiratory Rate 17 17 Blood Pressure 116/58 L 116/59 L Pulse Oximetry 100 97 Oxygen Delivery Method Room Air Room Air BMI result Body Mass Index 22.8 Labs 06/14/23 17:43 06/20/23 08:56 Imaging Radiology Impressions: ITS Impressions Foot X-Ray 06/14/23 18:05 IMPRESSION: Small calcaneal heel spur. No visible acute fracture or dislocation seen. Venous Duplex 06/16/23 17:52 IMPRESSION: No DVT demonstrated in the either lower extremity. Medications Medications Current Medications Acetaminophen (Acetaminophen 325 Mg Tablet) 650 mg PO Q6H PRN PRN Reason: Headache/Pain Mild Scale (1-3) Al Hydroxide/Mg Hydroxide (Magnesium Hydrox/Alum Hydrox 30 Ml Oral.Susp) 30 ml PO Q6H PRN PRN Reason: Heartburn/Nausea Hydrochlorothiazide (Hydrochlorothiazide 12.5 Mg Tablet) 12.5 mg PO DAILY [facility]; Protocol Last Admin: 06/24/23 08:28 Dose: 12.5 mg Hydroxyzine HCl (Hydroxyzine Hcl 25 Mg Tablet) 25 mg PO Q6H PRN PRN Reason: Anxiety Lactic Acid (Ammonium Lactate 12 % Lotion 226 Gm Bottle) 1 appl TOPICAL BID PRN; Protocol PRN Reason: Dry Skin Magnesium Hydroxide (Milk Of Magnesia 30 Ml Oral.Susp) 30 ml PO DAILY PRN PRN Reason: Constipation Risperidone (Risperidone 0.25 Mg Tablet) 0.25 mg PO Q4H PRN PRN Reason: Psychosis Risperidone (Risperidone 1 Mg Tablet) 1 mg PO BID [facility] Last Admin: 06/24/23 08:28 Dose: 1 mg Trazodone HCl (Trazodone Hcl 50 Mg Tablet) 50 mg PO BEDTIME MRX1 PRN PRN Reason: Insomnia Allergies Allergies Allergy/AdvReac Type Severity Reaction Status Date / Time NSAIDS (Non-Steroidal Allergy Intermediate STOMACH Verified 07/06/22 17:19 Anti-Inflamma UPSET [NSAIDS] Assessment & Plan Assessment & Plan (1) Schizophrenia, paranoid, chronic with acute exacerbation: Status: Acute Code(s): F20.0 - Paranoid schizophrenia (2) Major neurocognitive disorder: Status: Acute Code(s): F03.90 - Unspecified dementia, unspecified severity, without behavioral disturbance, psychotic disturbance, mood disturbance, and anxiety Plan Medical consult for patient with lower leg edema and hypertension. Pt states has been experiencing new lower-leg edema the past few weeks. Lower leg edema Pt complaining of lower leg edema with associated skin tightness for a few weeks Right worse than left Denies calf pain Venous duplex US of LE bilaterally negative for DVT Heber wrap on right lower leg Elevate legs Encourage ambulation Will start on hydrochlorothiazide 12.5 mg daily Will check BMP in 3-4 days Hypertension BP remains elevated with last reading 152/59 Patient previously on amlodipine 5 mg, though currently not on antihypertensives Will hold off on restarting amlodipine d/t lower leg edema Will start hydrochlorothiazide 12.5 mg daily Will check BMP in 3-4 days Chronic venous stasis dermatitis Lac-Hydrin 12% topic lotion to lower legs prn for dry skin Will continue to follow for now to monitor BP and BMP. PSYCH 06/21 continue current medications, pending MOCA and ACL. 06/22 continue tx. pending MOCA/ACL. 06/23 continue tx. pending moca ACL. 06/24 continue tx. Reason for continued inpatient stay Substantial Risk for: inability to function Time Spent With Patient Time: Total time managing care of this patient today ____ minutes.
[2023-06-24 19:35] VITALS: BP 149/67; PULSE 77; RESP 18; TEMP 36.1; O2SAT 99
[2023-06-25 08:00] VITALS: BP 155/70; PULSE 73; RESP 18; TEMP 36.8; O2SAT 99
[2023-06-25] MEDS: hydroCHLOROthiazide 12.5 MG TABLET PO (08:21)
[2023-06-25] MEDS: risperiDONE 1 MG TABLET PO (09:01)
--- NOTE | 2023-06-25 15:27 | P.PNPSI_ITS ---
Subjective Subjective Date of Service: 06/25/23 Reason For Visit: psychosis aggression Subjective Notes: Section 7 Interim History: Met with patient. Discussed with Nursing. Has been preoccupied that her is at home without water. 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 Reports she is here a lot longer than expected. Reported wanting to make a phone call because there was somebody at home that was not safe. Would not specify details. Reluctantly identify this person was a male, but would not give any more information or concerns. Stated feeling safe in the hospital. Denied feeling depressed. Review of Systems Review of Systems Yes Unobtainable due to mental status Mental Status Exam Mental Status Exam Narrative: Appearance:wearing casual clothing, fair hygiene, in NAD Behavior:calmer Psychomotor: no agitation or retardation noted Speech:mostly clear, regular rate/rhythm/volume, spontaneous TP:disorganized TC: less paranoid, Mood: ok Affect:somewhat expansive at times VH/AH:less AH/VH Delusions: paranoid Insight/judgment:impaired x 2. Memory/cog:alert, oriented not oriented to situation. Diagnostics Vital Signs (24Hr): Vital Signs - 24 hr 06/24/23 19:35 06/25/23 08:00 Temperature 96.9 F 98.2 F Pulse Rate 77 73 Respiratory Rate 18 18 Blood Pressure 149/67 H 155/70 H Pulse Oximetry 99 99 Oxygen Delivery Method Room Air Room Air BMI result Body Mass Index 22.8 Labs 06/14/23 17:43 06/20/23 08:56 Imaging Radiology Impressions: ITS Impressions Foot X-Ray 06/14/23 18:05 IMPRESSION: Small calcaneal heel spur. No visible acute fracture or dislocation seen. Venous Duplex 06/16/23 17:52 IMPRESSION: No DVT demonstrated in the either lower extremity. Medications Medications Current Medications Acetaminophen (Acetaminophen 325 Mg Tablet) 650 mg PO Q6H PRN PRN Reason: Headache/Pain Mild Scale (1-3) Al Hydroxide/Mg Hydroxide (Magnesium Hydrox/Alum Hydrox 30 Ml Oral.Susp) 30 ml PO Q6H PRN PRN Reason: Heartburn/Nausea Hydrochlorothiazide (Hydrochlorothiazide 12.5 Mg Tablet) 12.5 mg PO DAILY [facility]; Protocol Last Admin: 06/25/23 08:21 Dose: 12.5 mg Hydroxyzine HCl (Hydroxyzine Hcl 25 Mg Tablet) 25 mg PO Q6H PRN PRN Reason: Anxiety Lactic Acid (Ammonium Lactate 12 % Lotion 226 Gm Bottle) 1 appl TOPICAL BID PRN; Protocol PRN Reason: Dry Skin Magnesium Hydroxide (Milk Of Magnesia 30 Ml Oral.Susp) 30 ml PO DAILY PRN PRN Reason: Constipation Risperidone (Risperidone 0.25 Mg Tablet) 0.25 mg PO Q4H PRN PRN Reason: Psychosis Risperidone (Risperidone 1 Mg Tablet) 1 mg PO BID [facility] Last Admin: 06/25/23 09:01 Dose: 1 mg Trazodone HCl (Trazodone Hcl 50 Mg Tablet) 50 mg PO BEDTIME MRX1 PRN PRN Reason: Insomnia Allergies Allergies Allergy/AdvReac Type Severity Reaction Status Date / Time NSAIDS (Non-Steroidal Allergy Intermediate STOMACH Verified 07/06/22 17:19 Anti-Inflamma UPSET [NSAIDS] Assessment & Plan Assessment & Plan (1) Schizophrenia, paranoid, chronic with acute exacerbation: Status: Acute Code(s): F20.0 - Paranoid schizophrenia (2) Major neurocognitive disorder: Status: Acute Code(s): F03.90 - Unspecified dementia, unspecified severity, without behavioral disturbance, psychotic disturbance, mood disturbance, and anxiety Plan Medical consult for patient with lower leg edema and hypertension. Pt states has been experiencing new lower-leg edema the past few weeks. Lower leg edema Pt complaining of lower leg edema with associated skin tightness for a few weeks Right worse than left Denies calf pain Venous duplex US of LE bilaterally negative for DVT Heber wrap on right lower leg Elevate legs Encourage ambulation Will start on hydrochlorothiazide 12.5 mg daily Will check BMP in 3-4 days Hypertension BP remains elevated with last reading 152/59 Patient previously on amlodipine 5 mg, though currently not on antihypertensives Will hold off on restarting amlodipine d/t lower leg edema Will start hydrochlorothiazide 12.5 mg daily Will check BMP in 3-4 days Chronic venous stasis dermatitis Lac-Hydrin 12% topic lotion to lower legs prn for dry skin Will continue to follow for now to monitor BP and BMP. PSYCH 06/21 continue current medications, pending MOCA and ACL. 06/22 continue tx. pending MOCA/ACL. 06/23 continue tx. pending moca ACL. 06/25 continue tx. Reason for continued inpatient stay Substantial Risk for: inability to function Time Spent With Patient Time: Total time managing care of this patient today ____ minutes.
[2023-06-25 18:00] VITALS: BP 159/75; PULSE 88; RESP 20; TEMP 36.7; O2SAT 99
--- NOTE | 2023-06-25 20:35 | PC.NURSE ---
Patient was standing in the hallway by herself when approached by RN She started in her usual way of refusing to take a medication stating that she already took it. Usually she will warm up and eventually take it after a lengthy conversation about nonsensical issues. She stated that she will take it later or tomorrow and had the pill in her hand and started to walk away with the pill. RN explained the reason she was taking it and how much she was taking but tonight she got agitated and was gritting her teeth calling us thugs . She didnt have a reason for not taking it other than it made her sleepy. She put the pill on the computer cart and walked away.
[2023-06-26 07:45] VITALS: BP 123/64; PULSE 75; RESP 18; TEMP 36.7; O2SAT 97
[2023-06-26] MEDS: hydroCHLOROthiazide 12.5 MG TABLET PO (08:19)
[2023-06-26] MEDS: risperiDONE 1 MG TABLET PO ×2 (08:19→20:10)
--- NOTE | 2023-06-26 15:50 | P.PNPSI_ITS ---
Subjective Subjective Date of Service: 06/26/23 Reason For Visit: psychosis aggression Interim History: Remains preoccupied her is unsfae. Still very reluctant to discuss details with clinical writer. Very guarded. Stating that she also needed to get money from the bank and talk with a public relations account supervisor and upset that her thinks she was looking for a divorce. Stated feeling safe in the hospital. Denied feeling depressed. Medication Compliance: Yes Side effects from medications: No Attending Groups: Yes Review of Systems Acute medical concerns: No Review of Systems Review of Systems unremarkable . Mental Status Exam Mental Status Exam Narrative: Appearance:wearing casual clothing, fair hygiene, in NAD Behavior:calmer Psychomotor: no agitation or retardation noted Speech:mostly clear, regular rate/rhythm/volume, spontaneous TP:disorganized TC: less paranoid, Mood: ok Affect:somewhat expansive at times VH/AH:less AH/VH Delusions: paranoid Insight/judgment:impaired x 2. Memory/cog:alert, oriented not oriented to situation. Diagnostics Vital Signs (24Hr): Vital Signs - 24 hr 06/25/23 18:00 06/26/23 07:45 Temperature 98.1 F 98.0 F Pulse Rate 88 75 Respiratory Rate 20 18 Blood Pressure 159/75 H 123/64 Pulse Oximetry 99 97 Oxygen Delivery Method Room Air Room Air BMI result Body Mass Index 22.8 Labs 06/14/23 17:43 06/20/23 08:56 Imaging Radiology Impressions: ITS Impressions Foot X-Ray 06/14/23 18:05 IMPRESSION: Small calcaneal heel spur. No visible acute fracture or dislocation seen. Venous Duplex 06/16/23 17:52 IMPRESSION: No DVT demonstrated in the either lower extremity. Medications Medications Current Medications Acetaminophen (Acetaminophen 325 Mg Tablet) 650 mg PO Q6H PRN PRN Reason: Headache/Pain Mild Scale (1-3) Al Hydroxide/Mg Hydroxide (Magnesium Hydrox/Alum Hydrox 30 Ml Oral.Susp) 30 ml PO Q6H PRN PRN Reason: Heartburn/Nausea Hydrochlorothiazide (Hydrochlorothiazide 12.5 Mg Tablet) 12.5 mg PO DAILY [facility]; Protocol Last Admin: 06/26/23 08:19 Dose: 12.5 mg Hydroxyzine HCl (Hydroxyzine Hcl 25 Mg Tablet) 25 mg PO Q6H PRN PRN Reason: Anxiety Lactic Acid (Ammonium Lactate 12 % Lotion 226 Gm Bottle) 1 appl TOPICAL BID PRN; Protocol PRN Reason: Dry Skin Magnesium Hydroxide (Milk Of Magnesia 30 Ml Oral.Susp) 30 ml PO DAILY PRN PRN Reason: Constipation Risperidone (Risperidone 0.25 Mg Tablet) 0.25 mg PO Q4H PRN PRN Reason: Psychosis Risperidone (Risperidone 1 Mg Tablet) 1 mg PO BID [facility] Last Admin: 06/26/23 08:19 Dose: 1 mg Trazodone HCl (Trazodone Hcl 50 Mg Tablet) 50 mg PO BEDTIME MRX1 PRN PRN Reason: Insomnia Allergies Allergies Allergy/AdvReac Type Severity Reaction Status Date / Time NSAIDS (Non-Steroidal Allergy Intermediate STOMACH Verified 07/06/22 17:19 Anti-Inflamma UPSET [NSAIDS] Assessment & Plan Assessment & Plan (1) Schizophrenia, paranoid, chronic with acute exacerbation: Status: Acute Code(s): F20.0 - Paranoid schizophrenia (2) Major neurocognitive disorder: Status: Acute Code(s): F03.90 - Unspecified dementia, unspecified severity, without behavioral disturbance, psychotic disturbance, mood disturbance, and anxiety Plan Medical consult for patient with lower leg edema and hypertension. Pt states has been experiencing new lower-leg edema the past few weeks. Lower leg edema Pt complaining of lower leg edema with associated skin tightness for a few weeks Right worse than left Denies calf pain Venous duplex US of LE bilaterally negative for DVT Heber wrap on right lower leg Elevate legs Encourage ambulation Will start on hydrochlorothiazide 12.5 mg daily Will check BMP in 3-4 days Hypertension BP remains elevated with last reading 152/59 Patient previously on amlodipine 5 mg, though currently not on antihypertensives Will hold off on restarting amlodipine d/t lower leg edema Will start hydrochlorothiazide 12.5 mg daily Will check BMP in 3-4 days Chronic venous stasis dermatitis Lac-Hydrin 12% topic lotion to lower legs prn for dry skin Will continue to follow for now to monitor BP and BMP. PSYCH 06/21 continue current medications, pending MOCA and ACL. 06/22 continue tx. pending MOCA/ACL. 06/23 continue tx. pending moca ACL. 06/26 continue tx. Reason for continued inpatient stay Substantial Risk for: inability to function and rapid decompensation Time Spent With Patient Time: Total time managing care of this patient today ____ minutes.
[2023-06-26 18:00] VITALS: BP 134/65; PULSE 65; RESP 18; TEMP 36.3; O2SAT 98
[2023-06-27 08:15] VITALS: BP 108/53; PULSE 70; RESP 20; TEMP 36.6; O2SAT 99
[2023-06-27] MEDS: hydroCHLOROthiazide 12.5 MG TABLET PO (08:17)
[2023-06-27] MEDS: risperiDONE 1 MG TABLET PO (08:17)
--- NOTE | 2023-06-27 14:05 | P.PNPSI_ITS ---
Subjective Subjective Date of Service: 06/27/23 Reason For Visit: psychosis aggression Subjective Notes: Section 7 Interim History: Pt slept through the night. Pt reports she does not know when she saw her . She talks about wanting to go home soon. She denies SI/HI. At times she talks about things that are not connected with topic at hand. Her attention is poor and she often appears to scan the room as if internally preoccupied. When asked she denied hearing voices. She continues at times to laugh inappropriately. When asked the month, she states she thinks it is Spring. When asked the year, it took her a while to finally state 2022. She did not know the date. She did complete clock draw test, which she was able to do slowly but correctly. Medication Compliance: Intermittent (at times may decline medication without clear rationale) Side effects from medications: Yes Review of Systems Acute medical concerns: No Mental Status Exam Mental Status Exam Narrative: Appearance:wearing casual clothing, fair hygiene, in NAD Behavior:calmer Psychomotor: no agitation or retardation noted Speech:mostly clear, regular rate/rhythm/volume, spontaneous TP:disorganized TC: less paranoid, Mood: ok Affect:somewhat expansive at times VH/AH:less AH/VH Delusions: paranoid Insight/judgment:impaired x 2. Memory/cog:alert, oriented not oriented to situation. Diagnostics Vital Signs (24Hr): Vital Signs - 24 hr 06/26/23 18:00 06/27/23 08:15 Temperature 97.4 F 97.8 F Pulse Rate 65 70 Respiratory Rate 18 20 Blood Pressure 134/65 108/53 L Pulse Oximetry 98 99 Oxygen Delivery Method Room Air Room Air BMI result Body Mass Index 22.8 Labs 06/14/23 17:43 06/20/23 08:56 Imaging Radiology Impressions: ITS Impressions Foot X-Ray 06/14/23 18:05 IMPRESSION: Small calcaneal heel spur. No visible acute fracture or dislocation seen. Venous Duplex 06/16/23 17:52 IMPRESSION: No DVT demonstrated in the either lower extremity. Medications Medications Current Medications Acetaminophen (Acetaminophen 325 Mg Tablet) 650 mg PO Q6H PRN PRN Reason: Headache/Pain Mild Scale (1-3) Al Hydroxide/Mg Hydroxide (Magnesium Hydrox/Alum Hydrox 30 Ml Oral.Susp) 30 ml PO Q6H PRN PRN Reason: Heartburn/Nausea Hydrochlorothiazide (Hydrochlorothiazide 12.5 Mg Tablet) 12.5 mg PO DAILY [facility]; Protocol Last Admin: 06/27/23 08:17 Dose: 12.5 mg Hydroxyzine HCl (Hydroxyzine Hcl 25 Mg Tablet) 25 mg PO Q6H PRN PRN Reason: Anxiety Lactic Acid (Ammonium Lactate 12 % Lotion 226 Gm Bottle) 1 appl TOPICAL BID PRN; Protocol PRN Reason: Dry Skin Magnesium Hydroxide (Milk Of Magnesia 30 Ml Oral.Susp) 30 ml PO DAILY PRN PRN Reason: Constipation Risperidone (Risperidone 0.25 Mg Tablet) 0.25 mg PO Q4H PRN PRN Reason: Psychosis Risperidone (Risperidone 1 Mg Tablet) 1 mg PO BID [facility] Last Admin: 06/27/23 08:17 Dose: 1 mg Trazodone HCl (Trazodone Hcl 50 Mg Tablet) 50 mg PO BEDTIME MRX1 PRN PRN Reason: Insomnia Allergies Allergies Allergy/AdvReac Type Severity Reaction Status Date / Time NSAIDS (Non-Steroidal Allergy Intermediate STOMACH Verified 07/06/22 17:19 Anti-Inflamma UPSET [NSAIDS] Assessment & Plan Assessment & Plan (1) Schizophrenia, paranoid, chronic with acute exacerbation: Status: Acute Code(s): F20.0 - Paranoid schizophrenia (2) Major neurocognitive disorder: Status: Acute Code(s): F03.90 - Unspecified dementia, unspecified severity, without behavioral disturbance, psychotic disturbance, mood disturbance, and anxiety Plan Medical consult for patient with lower leg edema and hypertension. Pt states has been experiencing new lower-leg edema the past few weeks. Lower leg edema Pt complaining of lower leg edema with associated skin tightness for a few weeks Right worse than left Denies calf pain Venous duplex US of LE bilaterally negative for DVT Heber wrap on right lower leg Elevate legs Encourage ambulation Will start on hydrochlorothiazide 12.5 mg daily Will check BMP in 3-4 days Hypertension BP remains elevated with last reading 152/59 Patient previously on amlodipine 5 mg, though currently not on antihypertensives Will hold off on restarting amlodipine d/t lower leg edema Will start hydrochlorothiazide 12.5 mg daily Will check BMP in 3-4 days Chronic venous stasis dermatitis Lac-Hydrin 12% topic lotion to lower legs prn for dry skin Will continue to follow for now to monitor BP and BMP. PSYCH 06/21 continue current medications, pending MOCA and ACL. 06/22 continue tx. pending MOCA/ACL. 06/23 continue tx. pending moca ACL. 06/26 continue tx. 06/27 pt not oriented to month (thinks is Spring, nor day or date) she does know the year. Vaguely oriented to situation as she does not know why she is here or for how long. Pt appears with poor attention, scamming room, appears internally preoccupied. She did complete clock draw test accurately. will switch risperidone to night time dose 2mg po qhs. She may benefit from increase dose as she continues to present as internally preoccupied with poor attention. Reason for continued inpatient stay Substantial Risk for: inability to function Time Spent With Patient Time: Total time managing care of this patient today ____ minutes.
[2023-06-27 19:35] VITALS: BP 128/60; PULSE 72; RESP 18; TEMP 36.4
[2023-06-28 07:50] VITALS: BP 135/64; PULSE 81; RESP 18; TEMP 36.6; O2SAT 99
[2023-06-28] MEDS: hydroCHLOROthiazide 12.5 MG TABLET PO (07:50)
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
[2023-06-28] MEDS: Acetaminophen 325 MG TABLET 650 MG PO (09:46)
[2023-06-28 18:00] VITALS: BP 168/71; PULSE 73; RESP 18; TEMP 36.6; O2SAT 99
[2023-06-28] MEDS: risperiDONE 2 MG TABLET PO (21:45)
[2023-06-29 08:35] VITALS: BP 136/62; PULSE 77; RESP 18; TEMP 36.1; O2SAT 99
[2023-06-29] MEDS: hydroCHLOROthiazide 12.5 MG TABLET PO (08:46)
[2023-06-29 19:35] VITALS: BP 150/67; PULSE 70; RESP 16; TEMP 36.8; O2SAT 99
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
[2023-06-29] MEDS: risperiDONE 2 MG TABLET PO (20:22)
[2023-06-30 07:56] VITALS: BP 127/58; PULSE 83; RESP 18; TEMP 36.2; O2SAT 99
[2023-06-30] MEDS: hydroCHLOROthiazide 12.5 MG TABLET PO (08:28)
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
== END 2023-06-30 10:47 | disposition home or self-care (01) | DRG 885 ==
LOC: HO.ED 06-15 01:45 → HO.PGERI 06-15 20:05
PROVIDERS: Physician Assistant; Student in an Organized Health Care Education/Training Program; Admitting Provider Psychiatry & Neurology Psychiatry; Emergency Provider Emergency Medicine Emergency Medical Services; PCP Internal Medicine; Visit Provider Psychiatry & Neurology Psychiatry
DX: F20.0 Paranoid schizophrenia (principal); F17.210 Nicotine dependence, cigarettes, uncomplicated; F03.90 Unspecified dementia, unspecified severity, without behavioral disturbance, psychotic disturbance, mood disturbance, and anxiety; I87.303 Chronic venous hypertension (idiopathic) without complications of bilateral lower extremity; I10 Essential (primary) hypertension; Z71.6 Tobacco abuse counseling; Z20.822 Contact with and (suspected) exposure to COVID-19; Z79.899 Other long term (current) drug therapy
CPT/HCPCS: 36415; 73630; 80048; 80053; 80061; 80307; 81003; 82607; 82746; 83880; 84443; 85025; 87635; 93005; 93970; 99285; S9485

== ENCOUNTER → 2023-06-15 20:04 | Outpatient (BNV) | payer MEDICARE, SELFPAY | PROVIDERS: Admitting Provider Psychiatry & Neurology Psychiatry; Emergency Provider Emergency Medicine Emergency Medical Services; PCP Internal Medicine; Visit Provider Social Worker | DX: F20.0 Paranoid schizophrenia (principal); F03.90 Unspecified dementia, unspecified severity, without behavioral disturbance, psychotic disturbance, mood disturbance, and anxiety | CPT/HCPCS: 90792; 99231; 99232; 99239 ==

== ENCOUNTER → 2023-06-15 20:04 | Outpatient (BNV) | payer MEDICARE, SELFPAY | PROVIDERS: Admitting Provider Psychiatry & Neurology Psychiatry; Emergency Provider Emergency Medicine Emergency Medical Services; PCP Internal Medicine; Visit Provider Student in an Organized Health Care Education/Training Program | DX: R60.0 Localized edema (principal); I87.2 Venous insufficiency (chronic) (peripheral) | CPT/HCPCS: 99222 ==